=== PATIENT | male | born 1950 | race Caucasian/White ===

== ENCOUNTER 2020-05-22 07:25 | Outpatient (CLI) | payer MEDICARE, SELFPAY ==
--- NOTE | ~2020-05-22 | CT_ITS ---
EXAMINATION: CT chest wo con DATE: 05/22/2020 07:56 INDICATION: 5 mm middle lobe nodule noted on 04/18/2019 CT abdomen pelvis examination TECHNIQUE: Computed tomography (CT) of the chest was performed without intravenous contrast. Automate d exposure control and iterative reconstruction technique were employed. Exam dose: 284.94 mGy-cm to gisell exam DLP. COMPARISON: 04/18/2019 CT abdomen pelvis FINDINGS: Probable anterior left apical scarring; recommend [address] thorax follow-up to document s tability. Minimal focal groundglass density in the anterior right apical area. Occasional right upper, middle a nd lower lobe pulmonary calcifications consistent with old granulomatous disease. No suspicious pulmonary mass is noted otherwise. No pulmonary infiltrate or consolidation. Status post sternotomy. There is a monitoring device in the anterior left chest wall. There is normal heart size. There is coronary, aortic and great vessel atherosclerotic calcification. No thoracic aortic aneurysm is evident. No pericardial or pleural effusion. No hilar or mediastinal mass lesion or lymphadenopathy. Normal morphology of the adrenal glands. Status post cholecystectomy. Diffuse idiopathic skeletal hyperostosis of the thoracic spine. No suspicious osteolytic or osteoblas tic lesions are noted. IMPRESSION: Probable left apical and minimal right apical scarring; recommend [address] chest follo w-up examination to document stability Old pulmonary granulomatous disease Reviewed, dictated and finalized at [facility]. Reviewed, dictated and finalized at location B. TRY PRINTER IMPRESSION: Probable left apical and minimal right apical scarring; recommend [address] chest follow-up examination to document stability Old pulmonary granulomatous disease
== END 2020-05-22 07:26 | disposition home or self-care (01) ==
PROVIDERS: PCP Internal Medicine; Visit Provider Physician Assistant
DX: R91.1 Solitary pulmonary nodule (principal)
CPT/HCPCS: 71250

== ENCOUNTER 2021-04-23 07:51 | Outpatient (CLI) | payer MEDICARE, SELFPAY ==
--- NOTE | 2021-04-23 17:19 | WPDSIXMINUTE ---
Six Minute Walk Procedure Procedure Performed Pulmonary Stress Test (6 min walk) Six Minute Walk This is a 6 minute walk test. The test was performed and interpreted in accordance with the 2014 ERS/ATS task force guidelines. Findings: The patient's resting room air oxygen saturation measured by pulse oximetry was 96% and her heart rate was 77 bpm. Patient ambulated for 366 meters and oxygen saturation remained 92 to 95%. Heart rate at the end of the study was 99 bpm. The patient did not qualify for supplemental oxygen at rest or with ambulation. There are no prior studies for comparison.
--- NOTE | 2021-04-23 17:20 | WPDPFTINT ---
PFT Procedure Performed PFT Procedure Performed Spirometry with Pre/Post Bronchodilator Plethysmography (Lung Vol) Diffusing Cap (DLCO) Flow Vol Loop PFT Interpretation This is a pulmonary function test with pre and post-bronchodilator spirometry, plethysmography and diffusing capacity. The test was performed and results interpreted in accordance with the 2019 and 2005 ATS/ERS Task Force guidelines respectively using the Global Lung Function Initiative-2012 reference equations. Patient demonstrated good effort and cooperation. Reproducibility criteria were met. The quality of the pre bronchodilator spirometry maneuver was Grade A and post bronchodilator spirometry maneuver was Grade A. Findings: Spirometry: The contour of the inspiratory and expiratory flow tracing are normal. The pre bronchodilator FVC is 2.82 L, 76% predicted. The pre bronchodilator FEV1 is 2.10 L, 74% predicted. The FEV1: FVC ratio 75%. The post bronchodilator FVC is 2.96 L, representing a 5% increase. The post bronchodilator FEV1 is 2.21 L, representing a 5% increase. The post bronchodilator FEV1: FVC ratio was 75%. Plethysmography: The total lung capacity is 7.51 L, 120% predicted. The functional residual capacity is 5.02 L, 154% predicted. The residual volume is 3.97 L, 177% predicted. Diffusing capacity: The absolute diffusion capacity is 22.4, 91% predicted. The diffusing capacity corrected for alveolar volume is 4.56, 109% predicted. Impression: The spirometry is normal without evidence of an obstructive abnormality. There is no significant improvement after inhaling a single dose of albuterol. The lung volumes are normal. The diffusing capacity is normal. There are no prior studies for comparison
== END 2021-04-23 07:52 | disposition home or self-care (01) ==
LOC: ANHPFT 07:55
PROVIDERS: PCP Physician Assistant; Visit Provider Internal Medicine Pulmonary Disease
DX: R06.00 Dyspnea, unspecified (principal); J40 Bronchitis, not specified as acute or chronic; Z72.0 Tobacco use
CPT/HCPCS: 94060; 94618; 94726; 94729

== ENCOUNTER 2021-08-03 07:57 | Outpatient (CLI) | payer MEDICARE, SELFPAY ==
--- NOTE | 2021-08-11 22:05 | WPDSLEEPSTUD ---
Sleep Study Date of Study: 08/03/21 Ordering Provider: Channing Ulloa MD Interpreting Physician: Seema Schuster DO Sleep Study Type: Split Polysomnogram Height: 1.68 m Weight: 112.945 kg Body Mass Index: 40.1 Neck Circumference (inches): 18 [place]: 6 Reason for Sleep Study Patient had a polysomnogram on 01/26/2010 with an AHI of 23. Patient had a CPAP titration on 02/11/2010 with a CPAP of 9 using a nasal mask and 2 L bleed in which he has been maintained on since then. Sleep History The patient is a 71-year-old male with coronary artery disease status post CABG, atrial fibrillation, hypertension, dyslipidemia, morbid obesity, asthma and TABATHA on CPAP that had a sleep study ordered by his book packer. The patient is currently on CPAP 9 cm H2O with 2 L of oxygen. The patient is currently paying for his own sleep apnea equipment and would like his insurance company to start covering it. The patient rarely awakens from sleep short of breath. He rarely awakens at night with heartburn, belching or cough. He denies snoring loud enough that others complain. He occasionally has trouble sleeping when he has a cold. He denies waking up gasping for air throughout the night. He denies having breathing problems at night observed by himself or others. He occasionally sweats excessively at night. He occasionally has heart palpitations or irregular heartbeats during the night. He rarely falls asleep during the day but never while driving. He denies cataplexy. He denies having trouble at school or work due to sleepiness. He rarely feels unable to move when waking up or falling asleep. He he rarely experiences vivid dream like scenes upon awakening or falling asleep. He denies having nightmares. He frequently has thoughts racing through his mind. He frequently feels sad or depressed. He frequently has anxiety. He rarely notices parts of his body jerk. He occasionally has crawling aching feelings in his legs. He frequently has leg pains during the night. He constantly grinds his teeth during sleep but never awakens with morning doffing. He occasionally is bothered by pain during the day but rarely awakened by pain during the night. He occasionally wakes up feeling stiff in the morning. He rarely wakes up with Sore or achy muscles. He rarely wakes up with pain in the neck, spine and other joints. He goes to bed between 11:00 p.m. and midnight on both weekdays and weekends. The amount of time it takes for him this fall asleep is variable. He wakes up 1-2 times throughout the night to urinate. He can fall back asleep immediately. He wakes up around 8:00 a.m. on both weekdays and weekends. He typically gets 6-7 hours of sleep per night. That amount of time he stays in bed after waking up is variable. He currently lives alone. He does not consume any caffeinated beverages within 2 hours of bedtime. He does not engage in physical exercise before bedtime. He will read and watch television before falling asleep. He does not take naps in the afternoon or the evening. He drinks 2-3 cups of caffeinated beverage per day. He quit smoking cigarettes several years ago. He will occasionally have a CBD edible. He denies alcohol use. [facility] Past Medical History Medical History Asthma Atrial fibrillation CAD (coronary artery disease), autologous vein bypass graft Dyslipidemia Hypertension Surgical History Surgical History History of appendectomy History of cataract extraction History of coronary artery bypass graft Family History Family History Father Family history of Alzheimer's disease Mother Family history of congestive heart failure, Onset Age: 79 Cerebrovascular accident Sibling Patient's sister is Social Histor
[2021-08-17 14:37] VITALS: BMI 40.1
== END 2021-08-04 06:21 | disposition home or self-care (01) ==
LOC: ANHCSM 07:58
PROVIDERS: PCP Physician Assistant; Visit Provider Internal Medicine Pulmonary Disease
DX: G47.33 Obstructive sleep apnea (adult) (pediatric) (principal)
CPT/HCPCS: 95811

== ENCOUNTER 2021-08-27 09:01 | Outpatient (CLI) | payer MEDICARE, SELFPAY ==
--- NOTE | 2021-09-02 11:18 | WPDSLEEPSTUD ---
Sleep Study Date of Study: 08/27/21 Ordering Provider: Channing Ulloa MD Interpreting Physician: Destiny Naylor MD Sleep Study Type: CPAP Titration Height: 1.68 m Weight: 112.491 kg Body Mass Index: 40.0 Neck Circumference (inches): 17 [place]: 5 Reason for Sleep Study Split night study 08/03/2021 with incomplete titration; patient returns for a full night titraiton Sleep History Pedrito Domingo is a 71 year old man with obstructive sleep apnea diagnosed 01/26/2010 with an apnea hypopnea index of 23, was treated with CPAP 9 cm and 2 L O2 since then. His split night study 08/03/2021 showed an apnea hypopnea index of 5.6, REM AHI 25.5. He was titrated from 5 cm to 12 cm with his AHI remaining elevated at the highest pressure, AHI was 22.9 without REM at that pressure. His AHI was higher during REM. Sometimes during a split night study, there is not enough time to get to the optimal pressure. He has coronary artery disease status post CABG, atrial fibrillation, hypertension, dyslipidemia, morbid obesity, asthma and TABATHA on CPAP 9 cm H2O with 2 L of oxygen. The patient is currently paying for his own sleep apnea equipment and would like his insurance company to start covering it. The patient rarely awakens from sleep short of breath. He rarely awakens at night with heartburn, belching or cough. He denies snoring loud enough that others complain. He occasionally has trouble sleeping when he has a cold. He denies waking up gasping for air throughout the night. He denies having breathing problems at night observed by himself or others. He occasionally sweats excessively at night. He occasionally has heart palpitations or irregular heartbeats during the night. He rarely falls asleep during the day but never while driving. He denies cataplexy. He denies having trouble at school or work due to sleepiness. He rarely feels unable to move when waking up or falling asleep. He he rarely experiences vivid dream like scenes upon awakening or falling asleep. He denies having nightmares. He frequently has thoughts racing through his mind. He frequently feels sad or depressed. He frequently has anxiety. He rarely notices parts of his body jerk. He occasionally has crawling aching feelings in his legs. He frequently has leg pains during the night. He constantly grinds his teeth during sleep but never awakens with morning doffing. He occasionally is bothered by pain during the day but rarely awakened by pain during the night. He occasionally wakes up feeling stiff in the morning. He rarely wakes up with Sore or achy muscles. He rarely wakes up with pain in the neck, spine and other joints. Normal bedtime is between 11:00 p.m. and midnight, and the amount of time it takes for him this fall asleep is variable. He wakes up 1-2 times throughout the night to urinate. He can fall back asleep immediately. He wakes up around 8:00 a.m. He typically gets 6-7 hours of sleep per night. He currently lives alone. He does not consume any caffeinated beverages within 2 hours of bedtime. He does not engage in physical exercise before bedtime. He will read and watch television before falling asleep. He does not take naps in the afternoon or the evening. Habits: Tobacco, quit several years ago. Caffeine: 2-3 servings a day. He will occasionally have a CBD edible. He denies alcohol use. [facility] Past Medical History Medical History (Updated 09/02/21 @ 11:32 by Destiny Naylor MD) Anemia Asthma Atrial fibrillation CAD (coronary artery disease), autologous vein bypass graft Dyslipidemia Hypertension TABATHA (obstructive sleep apnea) Surgical History Surgical History History of appendectomy History of cataract extraction History of coronary artery bypass graft Family History Family History Father Family history of Alzheimer's disease
[2021-09-02 12:45] VITALS: BMI 40.0
== END 2021-08-28 07:23 | disposition home or self-care (01) ==
LOC: ANHCSM 09:10
PROVIDERS: PCP Physician Assistant; Visit Provider Internal Medicine Pulmonary Disease
DX: G47.33 Obstructive sleep apnea (adult) (pediatric) (principal)
CPT/HCPCS: 95811

== ENCOUNTER 2021-11-26 09:58 | Outpatient (CLI) | payer MEDICARE, SELFPAY ==
--- NOTE | ~2021-11-26 | US_ITS ---
EXAMINATION: US venous doppler LE RT DATE: 11/26/2021 10:53 INDICATION: Right lower limb pain. TECHNIQUE: Grayscale ultrasound images without and with compression and Doppler ultrasound images of the right lower extremity veins were obtained. COMPARISON: None. FINDINGS: The visualized portions of right common femoral vein, profunda (deep) femoral vein, femoral vein, pop liteal vein, peroneal veins, posterior tibial veins, and greater saphenous vein outflow are patent. IMPRESSION: 1. No deep venous thrombosis. Reviewed, dictated and finalized at location A.
== END 2021-11-26 09:59 | disposition home or self-care (01) ==
PROVIDERS: PCP Physician Assistant; Visit Provider Physician Assistant
DX: M79.604 Pain in right leg (principal)
CPT/HCPCS: 93971

== ENCOUNTER 2022-02-17 07:33 | Outpatient (CLI) | payer MEDICARE, SELFPAY ==
--- NOTE | ~2022-02-17 | NM_ITS ---
EXAMINATION: NM staci stress w perfusion DATE: 02/17/2022 11:18 INDICATION: Chest pain TECHNIQUE: Rest images were obtained following intravenous administration of 9.8 mCi Tc99m tetrofosmi n (Myoview). The patient was infused intravenously with Lexiscan (Regadenoson). Then, 30 mCi Tc99m te trofosmin (Myoview) was administered intravenously, and stress images were obtained. Data was reconst ructed into short axis and horizontal and vertical long axis SPECT images. Gated SPECT images were al so obtained. COMPARISON: None. FINDINGS: Large mild perfusion defect, reversible consistent with ischemia at the mid anteroseptal an d the posterior septal segments, nonreversible consistent with infarct at the apical and apical septa l segments and partially reversible at the anteroapical, apical lateral and inferior septal segments consistent with combination of infarct and ischemia. There is normal left ventricular chamber size, w all motion and ejection fraction. Left ventricular ejection fraction measures 60%. IMPRESSION: 1. Reversible ischemia at the mid anteroseptal and mid inferoseptal segments, nonreversible infarct a t the apical septal and apical segments and partially reversible ischemia superimposed over infarct i n the surrounding apical anterior, apical lateral and apical inferior segments. 2. Left ventricular ejection fraction measuring 60%. Reviewed, dictated and finalized at location A. IMPRESSION: 1. Reversible ischemia at the mid anteroseptal and mid inferoseptal segments, n onreversible infarct at the apical septal and apical segments and partially rev ersible ischemia superimposed over infarct in the surrounding apical anterior, apical lateral and apical inferior segments. 2. Left ventricular ejection fraction measuring 60%.
--- NOTE | 2022-02-17 07:41 | EST_ITS ---
Patient Info Name: Pedrito Domingo Age: 71 years : 1950 Gender: Male Ht: 66 in Wt: 250 lbs BSA: 2.35 m2 HR: 49 bpm BP: 116 / 56 mmHg Heart Rhythm: Atrial Fibrillation Exam Date: 02/17/2022 10:10 AM Exam Location: [facility] Stress Patient Status: Outpatient Admit Date: 02/17/2022 Staff Ordering Physician: Teddy Cortes DO Attending Provider: Teddy Cortes DO Exercise Technologist: Radha Palacios CT Exercise Physician: Teddy Cortes DO Exam Type: CA stress staci w NM Study Info Indications R07.9 - Chest pain, unspecified A regadenoson stress test was performed. Summary 1. 1. Negative lexiscan stress test for ischemic ST changes by ECG criteria. 2. 2. Stable hemodynamics throughout the test. 3. 3. Nuclear scan to follow and will be reported separately. Please correlate with it. 4. 4. Patient informed of the above results. Protocol: Lexiscan Stress ECG Details Stage: REST Duration (min): 1 min : 57 sec HR (bpm): 51 SBP (mmHg): 116 DBP (mmHg): 56 Stage: REST Duration (min): 8 min : 15 sec HR (bpm): 55 SBP (mmHg): 116 DBP (mmHg): 56 Stage: STAGE 1 Duration (min): 1 min : 0 sec HR (bpm): 61 SBP (mmHg): 116 DBP (mmHg): 56 Stage: RECOVERY Duration (min): 1 min : 0 sec HR (bpm): 65 SBP (mmHg): 108 DBP (mmHg): 83 Stage: RECOVERY Duration (min): 2 min : 0 sec HR (bpm): 67 SBP (mmHg): 108 DBP (mmHg): 83 Stage: RECOVERY Duration (min): 3 min : 0 sec HR (bpm): 61 SBP (mmHg): 129 DBP (mmHg): 79 Stage: RECOVERY Duration (min): 3 min : 18 sec HR (bpm): 66 SBP (mmHg): 129 DBP (mmHg): 79 Rest HR: 55 bpm Peak HR: 71 bpm Rest Sys BP: 116 mmHg Peak Sys BP: 129 mmHg Max Pred HR: 150 bpm % Max Pred HR: 47 % Target HR: 128 bpm Max RPP: 9,159 bpm*mmHg Termination Reason: Completed protocol Cardiac Symptoms: Shortness of breath Total Time: 1 min : 0 sec Rest Doyle BP: 56 mmHg Peak Doyle BP: 79 mmHg Total Dose: 0.4 mg Resting ECG Atrial fibrillation with intermittent RBBB. Stress ECG No ST changes. Arrhythmias None. Report Signatures
--- NOTE | 2022-02-17 07:41 | ECHO_ITS ---
Patient Info Name: Pedrito Domingo Age: 71 years : 1950 Gender: Male Ht: 67 in Wt: 250 lbs BSA: 2.37 m2 HR: 56 bpm BP: 133 / 80 mmHg Technical Quality: Good Exam Date: 02/17/2022 8:15 AM Exam Location: [facility] Patient Status: Outpatient Admit Date: 02/17/2022 Staff Ordering Physician: Teddy Cortes DO Engineering Illustrator: Avinash Carvalho RDCS, RT Attending Provider: Teddy Cortes DO Referring Physician: Sebastian DUNCAN; Exam Type: CA echo dop color flow w con Study Info Indications I50.9 - Heart failure, unspecified Complete two-dimensional, color flow and Doppler transthoracic echocardiogram is performed. Strain analysis performed. Summary 1. Complete two-dimensional, color flow and Doppler transthoracic echocardiogram is performed. 2. Definity contrast administered improved wall motion interpretation. 3. Left ventricular chamber dimension is severely enlarged. 4. Left ventricular systolic function is preserved, estimated at 50-55%. 5. The left ventricular diastolic function is grade III diastolic dysfunction. 6. E/e' 12 is mildly elevated. 7. Right ventricular systolic function is reduced based on abnormal TAPSE 1.6 cm. 8. Left atrial chamber dimension is moderately enlarged. 9. Right atrial chamber dimension is mildly enlarged. 10. There is mild mitral valve regurgitation. 11. There is mild to moderate tricuspid valve regurgitation. 12. Mild pulmonary hypertension, estimated pulmonary arterial systolic pressure is 47 mmHg. 13. There is trace pulmonic regurgitation. Left Ventricle E/e' 12 is mildly elevated. Definity contrast administered improved wall motion interpretation. Left ventricular chamber dimension is severely enlarged. Left ventricular systolic function is preserved, estimated at 50-55%. The left ventricular diastolic function is grade III diastolic dysfunction. Right Ventricle Right ventricular systolic function is reduced based on abnormal TAPSE 1.6 cm. Right ventricular chamber dimension is not well visualized. Left Atria Left atrial chamber dimension is moderately enlarged. Right Atria Right atrial chamber dimension is mildly enlarged. Aortic Valve The aortic valve is trileaflet. There is no aortic valve stenosis. There is no aortic valve regurgitation. Pulmonic Valve There is trace pulmonic regurgitation. Mitral Valve There is no mitral valve stenosis. There is mild mitral valve regurgitation. Tricuspid Valve There is mild to moderate tricuspid valve regurgitation. Mild pulmonary hypertension, estimated pulmonary arterial systolic pressure is 47 mmHg. Pericardium/Pleural There is no pericardial effusion. Inferior Vena Cava Normal inferior vena cava with >50% collapse upon inspiration consistent with normal right atrial pressure, 5 mmHg. Aorta The aortic root size at the sinus of Valsalva is normal. Left Ventricular Outflow Tract Name Value Normal LVOT 2D LVOT Diameter 2.03 cm LVOT Doppler LVOT Peak Gradient 3 mmHg LVOT Mean Gradient 2 mmHg LVOT VTI 20.84
[2022-02-17] MEDS: PERFLUTREN LIPID MICROSPHERES 1.5 ML VIAL DILUTED TO 10 ML TOTAL VOLUME IV PUSH (08:30)
== END 2022-02-17 07:34 | disposition home or self-care (01) ==
LOC: ANHCARD 07:34
PROVIDERS: PCP Physician Assistant; Visit Provider Internal Medicine Cardiovascular Disease
DX: I25.810 Atherosclerosis of coronary artery bypass graft(s) without angina pectoris (principal); R07.9 Chest pain, unspecified; I34.0 Nonrheumatic mitral (valve) insufficiency; I36.1 Nonrheumatic tricuspid (valve) insufficiency
CPT/HCPCS: 78452; 93017; A9502; C8929; J2785; Q9957

== ENCOUNTER 2022-03-08 02:09 | Day surgery (SDC) | payer MEDICARE, SELFPAY ==
[2022-03-05 14:05] VITALS: BMI 40.1
[2022-03-08] VITALS (9 sets, daily range): BP systolic 111–142; BP diastolic 66–91; PULSE 52–64; RESP 16–20; TEMP 35.7–36.4; O2SAT 96–99; BMI 40.5
[2022-03-08 08:02] LABS: Basophils Absolute Auto 0.1 K/mm3 (0.0-0.1); Basophils Percent Auto 0.7 % (0.2-1.2); Eosinophils Absolute Auto 0.4 K/mm3 (0-0.3); Eosinophils Percent Auto 3.4 % (0-4.4); Hemoglobin 14.3 g/dL (14.0-18.0); Immature Granulocyte Absolute 0.06 K/mm3 (0.00-0.031); Immature Granulocyte Percent A 0.6 % (0-0.5); Lymphocytes Absolute Auto 1.96 K/mm3 (0.9-3.2); Lymphocytes Percent Auto 18.3 % (18.3-44.2); Mean Corpuscular HGB Conc 32.5 g/dl (32-36); Mean Corpuscular Hemoglobin 27.9 pg (26-34); Mean Corpuscular Volume 85.8 fl (80-100); Mean Platelet Volume 10.9 fl (7.4-10.4); Monocytes Absolute Auto 1.2 K/mm3 (0.1-0.6); Monocytes Percent Auto 11.1 % (2.6-8.5); Neutrophils Absolute Auto 7.1 K/mm3 (1.3-6.7); Neutrophils Percent Auto 65.9 % (45.5-73.1); Platelet Count Result 376 k/mm3 (150-375); Red Blood Count 5.13 M/mm3 (4.6-6.20); Red Cell Distribution Width 13.8 % (11.5-14.5); White Blood Count 10.7 K/mm3 (4.5-10.0)
[2022-03-08 08:11] LABS: Anion Gap 12 mmol/L (8-16); Blood Urea Nitrogen 31 mg/dL (9-20); Calcium 9.9 mg/dL (8.4-10.2); Carbon Dioxide 27 mmol/L (22-30); Chloride 100 mmol/L (98-107); Estimated CRCL calculation 81 ml/min; Estimated Glomerular Filt Rate > 60; Glucose 110 mg/dL (65-110); Potassium 4.1 mmol/L (3.4-5.0); Sodium 139 mmol/L (137-145)
--- NOTE | 2022-03-08 11:13 | WPDHPUPDATE1 ---
History and Physical Update Update Date/Time: 03/08/22 11:13 History and Physical has been reviewed, including an updated exam of the patient. There are NO changes in the patient's condition. Risks, benefits, and alternatives have been discussed and questions answered. Patient agrees to proceed with procedure.
--- NOTE | 2022-03-08 11:13 | WPDMODSED ---
Moderate Sedation Note-Pt Data Patient Data Diagnosis: Abnormal stress test Present Complaint: Shortness of breath in setting of abnormal stress test and known CAD s/p CABG Procedure to be performed/Plan: Coronary angiography, LHC, Bypass graft angiography Allergies Allergy/AdvReac Type Severity Reaction Status Date / Time No Known Allergies Allergy Verified 02/26/22 09:55 Home Medications Medication Instructions Recorded Confirmed Type cholecalciferol (vitamin D3) 125 5,000 unit PO DAILY 05/07/19 03/08/22 History mcg (5,000 unit) capsule coenzyme Q10 200 mg capsule 100 mg PO DAILY 06/16/20 03/08/22 History metoprolol tartrate 50 mg tablet 50 mg PO Q12H #180 tabs 03/02/21 03/08/22 Rx famotidine 20 mg tablet 20 mg PO BID PRN reflux #180 tabs 06/12/21 03/08/22 Rx metoprolol tartrate 25 mg tablet 25 mg PO BID #180 tabs 06/12/21 03/08/22 Rx Ventolin HFA 90 mcg/actuation 2 puff inhalation Q4-6H PRN 06/19/21 03/05/22 Rx aerosol inhaler (albuterol sulfate) shortness of breath or wheezing #8 grams omega-3 fatty acids 1,000 mg 1,000 mg PO BID 07/29/21 03/08/22 History capsule (Fish Oil Concentrate) chlorthalidone 25 mg tablet 25 mg PO DAILY #90 tabs 11/06/21 03/08/22 Rx fluoxetine 20 mg capsule (Prozac) 20 mg PO DAILY #90 caps 11/06/21 03/08/22 Rx fenofibrate 160 mg tablet 160 mg PO DAILY #90 tabs 01/05/22 03/08/22 Rx rosuvastatin 10 mg tablet (Crestor) 10 mg PO DAILY #90 tabs 01/05/22 03/08/22 Rx metformin 500 mg tablet 500 mg PO DAILY #90 tabs 02/25/22 03/08/22 Rx aspirin 81 mg tablet,delayed 81 mg PO DAILY 02/26/22 03/08/22 History release apixaban 5 mg tablet (Eliquis) 5 mg PO BID 03/05/22 03/08/22 History budesonide-formoterol HFA 160 2 puff inhalation PRN PRN 03/05/22 03/08/22 History mcg-4.5 mcg/actuation aerosol Shortness Of Breath inhaler (Symbicort) montelukast 10 mg tablet 10 mg PO DAILY 03/05/22 03/08/22 History pantoprazole 40 mg tablet,delayed 40 mg PO DAILY 03/05/22 03/05/22 History release (Protonix) amoxicillin 500 mg-potassium 1 tablet PO BID 03/08/22 03/08/22 History clavulanate 125 mg tablet Current Medications: Active Medications Sodium Chloride (Normal Saline Iv) 500 mls @ 100 mls/hr IV CONT .Q5H [facility] Sedation/Anesthesia: No previous sedation/anesthesia problems (including family history). [facility] Past Medical History Medical History Anemia Asthma Atrial fibrillation CAD (coronary artery disease), autologous vein bypass graft Dyslipidemia Hypertension TABATHA (obstructive sleep apnea) Surgical History Surgical History History of appendectomy History of cataract extraction History of coronary artery bypass graft Family History Family History Father Family history of Alzheimer's disease Mother Family history of congestive heart failure, Onset Age: 79 Cerebrovascular accident Sibling Patient's sister is Social History Social History Smoking packs per day: 1 Smoking cigarettes per day: 20.0 Years smoked: 5 Smoking pack-years: 5.00 Smoking status: Never smoker Second hand tobacco smoke exposure: No Alcohol intake: never Substance use: never Substance use type: does not use Living arrangements: alone Spiritual care concerns: No Mod Sed Physical Exam Physical Exam Pre Procedural Exam: Normal: Appearance, Throat, Airway, Lungs, Heart Rate, Heart Rhythm, Neuro Exam, Abdomen, Extremities and Skin Hours since solid foods: 10 Hours since liquid intake: 10 Mallampati Classification: class III Internal Medicine - PN: Obj Da Vital Signs Vital Signs: Vital Signs - 24 hr 03/08/22 07:31 03/08/22 10:43 03/08/22 11:00 Temperature 35.7 C L 36.4 C Pulse Rate 64 62 62 Respiratory Rate 16 16
--- NOTE | 2022-03-09 09:33 | WPDCARDPROC ---
Cardiac Cath Procedure Note Date of procedure:: 03/08/22 Performing physician:: CATHETERIZATION LABORATORY REPORT Procedure Date: 03/08/2022 Pest Controller Assistant: Rajiv Hoover M.D., [facility]? Referring Physician: Dr. Cortes ? Anesthesia: Versed and Fentanyl were ordered and given in my presence at 09:17, procedure ended at 10:27. Supervision of nurse monitored moderate sedation with Versed and Fentanyl was provided for 70 minutes. Total of Versed 4mg and Fentanyl 100mcg were administered by hoisting laborer RN. Pre-op Diagnosis: CAD s/p CABG Post-op Diagnosis: Severe [place] multivessel coronary artery disease Patent LIM-LAD and SVG-OM bypass grafts Occluded SVG-Diagonal and SVG-RCA bypass grafts Left ventricular end-diastolic pressure of 24mmHg Procedure(s): 1. Moderate sedation 2. Ultrasound-guided access of the right common femoral artery 3. Coronary angiography 4. Left heart cath 5. Bypass graft angiography 6. Aortogram 7. Angioseal closure of the right common femoral artery Access Site: Right common femoral artery Brief History and Clinical Indications: Patient is a 72-year-old male with a history of CAD s/p 4-V CABG in 2005 who has been having symptoms of shortness of breath. He underwent a stress test, which was abnormal. Therefore, patient referred for cardiac cath for ischemic evaluation. All risks, benefits and alternatives to left heart catheterization with or without percutaneous coronary intervention was discussed at length with the patient. Risk of complications including but not limited to bleeding, infection, arrhythmia, stroke, worsening kidney function, blood loss, groin hematoma, limb loss, emergency coronary artery bypass grafting, and even were discussed with the patient and all questions were answered. The patient understood and wished to proceed. Time out called, patient name, date of , medical record number, allergies, procedure performed, identify Pest Controller Assistant, patient and staff member concurred with accurate data, procedure carried on. Findings: LEFT HEART CATHETERIZATION FINDINGS: 1. Left main: The LAD and LCX have separate ostia. 2. Left anterior descending: The proximal LAD has an 80% stenosis. There are 2 small caliber diagonal branches that are diffusely diseased. After the second diagonal branch, the LAD is completely occluded. 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 The distal LAD is filled via the LIM graft. The distal LAD has mild diffuse disease. 3. Left circumflex: The left circumflex has mild diffuse disease without any significant obstructive angiographic disease. The LCX is a co-dominant vessel. There is an OM vessel which is occluded proximally; competitive filling is seen in the mid-distal portion of the vessel. 4. Right coronary artery: The RCA is a co-dominant vessel. The RCA is diffusely diseased. There is a moderate sized aneurysmal segment in the proximal-mid RCA. In the mid RCA, there is a 90% stenosis. Immediately distal to this stenosis, there is a small aneurysm. 5. Left ventricle: A. End-diastolic pressure 24 mmHg. B. LV gram deferred. C. No significant gradient across aortic valve on catheter pullback. 6. Bypass graft angiography: A. LIM to LAD is widely patent. B. SVG to OM is widely patent. Has a jump graft to a second OM vessel. C. SVG to RCA is occluded. Stump visualized. D. SVG to Diagonal appears to be occluded. No competitive filling seen in the Diagonal region. No graft visualized on aortogram. Description of Procedure: Informed consent signed and placed in the chart. Patient transferred to hoisting laborer room. Prepped and draped in usual sterile fashion. 2% lidocaine in right groin area. Micropuncture needle used to access right common femoral artery with Seldinger technique under fluoroscopic guidance. J wire advanced, micropuncture cannula placed. Right iliofemoral angiogram performed, access confirmed and micropuncture cannula ex
== END 2022-03-08 13:30 | disposition home or self-care (01) ==
PROVIDERS: PCP Physician Assistant; Visit Provider Internal Medicine
PROC: 4A023N7 Measurement of Cardiac Sampling and Pressure, Left Heart, Percutaneous Approach (ICD-10-PCS; CPT 93459; principal; 2022-03-08 08:30)
DX: I25.10 Atherosclerotic heart disease of native coronary artery without angina pectoris (principal); I25.810 Atherosclerosis of coronary artery bypass graft(s) without angina pectoris; I48.91 Unspecified atrial fibrillation; I10 Essential (primary) hypertension; E78.5 Hyperlipidemia, unspecified; G47.33 Obstructive sleep apnea (adult) (pediatric); J45.909 Unspecified asthma, uncomplicated; D64.9 Anemia, unspecified; Z79.51 Long term (current) use of inhaled steroids; Z79.84 Long term (current) use of oral hypoglycemic drugs; Z79.01 Long term (current) use of anticoagulants; Z79.82 Long term (current) use of aspirin
CPT/HCPCS: 36415; 80048; 85025; 93459; A9270; C1760; C1769; C1887; C1894; G0269; J1644; J2250; J3010; J7040

== ENCOUNTER 2022-07-08 15:07 | Emergency (ER) | payer MEDICARE, SELFPAY ==
--- NOTE | 2022-07-08 15:12 | ED.FEMALEGU ---
HPI - Female Genitourinary General Chief complaint: Urogenital-Male Stated complaint: BURNING/FREQUENT URINATION/FEVER/CHILLS/BODY ACHES Time Seen by Provider: 07/08/22 15:12 Source: patient and RN notes reviewed History of Present Illness HPI Narrative: Patient is a 72-year-old presents to the Urgent Care with complaints of frequent urination, fever, chills, body aches. Patient states that it started 1 week ago and he is soon to maybe he had COVID. Patient tested negative for COVID at home and he has been taking Tylenol for his symptoms. Denies nausea, calf pain or abdominal pain. No other acute complaints. No acute distress noted. Patient aware of the plan of care. Some parts of this dictation were generated by voice recognition software and may contain typographical and/or grammatical inaccuracies. Related Data Home Medications Medication Instructions Recorded Confirmed cholecalciferol (vitamin D3) 125 5,000 unit PO DAILY 05/07/19 07/08/22 mcg (5,000 unit) capsule coenzyme Q10 200 mg capsule 100 mg PO DAILY 06/16/20 07/08/22 omega-3 fatty acids 1,000 mg 1,000 mg PO BID 07/29/21 07/08/22 capsule (Fish Oil Concentrate) aspirin 81 mg tablet,delayed 81 mg PO DAILY 02/26/22 07/08/22 release Allergies Allergy/AdvReac Type Severity Reaction Status Date / Time No Known Allergies Allergy Verified 07/08/22 15:14 Review of Systems Review of Systems: CONSTITUTIONAL: Reports of fever, chills EYES: Denies visual changes, redness, or discharge. ENT: Denies rhinorrhea, congestion, sore throat, or otalgia. CARDIOVASCULAR: Denies chest pain, palpitations, or edema. RESPIRATORY: Denies cough or dyspnea. GASTROINTESTINAL: Denies abdominal pain, nausea, vomiting, or diarrhea. GENITOURINARY: Reports of urinary frequency, urgency SKIN: Denies rash or itching. MUSCULOSKELETAL: Denies back pain, joint pain. Reports of body ache NEUROLOGIC: Denies headache, numbness, or weakness. All other systems reviewed are negative, except as documented in HPI. [facility] Past Medical History Medical History Anemia Asthma Atrial fibrillation CAD (coronary artery disease), autologous vein bypass graft Dyslipidemia History of left heart catheterization Hypertension TABATHA (obstructive sleep apnea) Surgical History Surgical History History of appendectomy History of cataract extraction History of coronary artery bypass graft Family History Family History Father Family history of Alzheimer's disease Mother Family history of congestive heart failure, Onset Age: 79 Cerebrovascular accident Sibling Patient's sister is Social History Social History Smoking packs per day: 1 Smoking cigarettes per day: 20.0 Years smoked: 5 Smoking pack-years: 5.00 Smoking status: Never smoker Second hand tobacco smoke exposure: No Alcohol intake: never Substance use: never Substance use type: does not use Lack of Transportation: No Lack of Food: Never True Current Housing: I Have Housing Concerned About Future Housing: No Difficulty Paying Gas/Electric Bills: No Difficulty Paying for Meds: No Education: Master's Degree or Higher Difficulty w/ Childcare or Family Care: No Living arrangements: alone Spiritual care concerns: No Comments At the time of my signature, I reviewed and agree with the nursing past medical, surgical, social, and family history. There is no relevant family history pertinent to the patient complaint. Exam Narrative: GENERAL: This is a well-nourished, well-developed patient, in no apparent distress. HEAD: normocephalic, atraumatic. EYES: PERRL. Sclera clear/white. Vision is grossly intact. EARS: External ears normal NO
[2022-07-08 15:17] VITALS: BP 113/68; PULSE 83; RESP 16; TEMP 37.1; O2SAT 98
== END 2022-07-08 15:45 | disposition home or self-care (01) ==
PROVIDERS: Emergency Provider Nurse Practitioner Family; PCP Physician Assistant
DX: N39.0 Urinary tract infection, site not specified (principal); J45.909 Unspecified asthma, uncomplicated; I48.91 Unspecified atrial fibrillation; I25.10 Atherosclerotic heart disease of native coronary artery without angina pectoris; E78.5 Hyperlipidemia, unspecified; I10 Essential (primary) hypertension; Z98.84 Bariatric surgery status
CPT/HCPCS: 81003; 87077; 87086; 87186; 99213; G0463

== ENCOUNTER 2023-01-04 01:40 | Day surgery (SDC) | payer MEDICARE, SELFPAY ==
[2022-12-27 13:41] VITALS: BMI 41.3
[2023-01-04 08:31] LABS: Glucose Point of Care 96 mg/dl (65-105)
[2023-01-04 08:33] VITALS: BP 119/74; PULSE 66; RESP 18; TEMP 36; O2SAT 98
[2023-01-04] MEDS: LACTATED RINGERS 1,000 ML 150 ML IV CONT (08:43)
--- NOTE | 2023-01-04 09:01 | PM.HPGS ---
History of Present Illness History of Present Illness Consent: Risks, benefits, and alternatives have been discussed and questions answered. Patient agrees to proceed with procedure. Chief complaint: family history of colon cancer Narrative: Pedrito Domingo is a 72 year old male with last colonoscopy 6 years ago Review of Systems Constitutional: Constitutional: Denies headache(s) and Denies weakness Eyes: Eyes: Denies blurry vision ENT: Reports Normal hearing present, Denies headache(s) and Denies neck pain Cardiovascular: Cardiovascular: Denies chest pain and Denies dyspnea Respiratory: Respiratory: Denies dyspnea Gastrointestinal: Gastrointestinal: Reports no additional gastrointestinal complaints Genitourinary: Genitourinary: Denies dysuria Musculoskeletal: Musculoskeletal: Denies neck pain Integumentary/Breasts: Skin/Breast: Denies dry skin Neurologic: Reports Normal hearing present, Denies headache(s) and Denies weakness Psychiatric: Psychiatric: Denies anxiety Endocrine: Endocrine: Denies change in body appearance Hematologic/Lymphatic: Hematologic/Lymphatic: Denies easy bleeding Allergic/Immunologic: Allergic/Immunologic: Denies urticaria PMFSH Past Medical History Medical History (Updated 01/04/23 @ 09:02 by Prashant Benites MD) Anemia Asthma Atrial fibrillation CAD (coronary artery disease), autologous vein bypass graft Colon cancer screening Dyslipidemia History of left heart catheterization Hypertension TABATHA (obstructive sleep apnea) Surgical History Surgical History History of appendectomy History of cataract extraction History of coronary artery bypass graft Family History Family History Father Family history of Alzheimer's disease Mother Family history of congestive heart failure, Onset Age: 79 Cerebrovascular accident Sibling Patient's sister is Social History Social History Smoking packs per day: 1 Smoking cigarettes per day: 20.0 Years smoked: 5 Smoking pack-years: 5.00 Smoking status: Former smoker Tobacco type: cigarettes Second hand tobacco smoke exposure: No Smoking end date: 06/06/89 Alcohol intake: never Alcohol use details: socially Substance use: current Substance use type: marijuana Other substance usage details: EDIBLES OCC. Lack of Transportation: No Lack of Food: Never True Current Housing: I Have Housing Concerned About Future Housing: No Difficulty Paying Gas/Electric Bills: No Difficulty Paying for Meds: No Education: Master's Degree or Higher Difficulty w/ Childcare or Family Care: No Living arrangements: with family Occupation/Education: retired Spiritual care concerns: No Meds Home Medications and Allergies Home Medications Medication Instructions Recorded Confirmed Type cholecalciferol (vitamin D3) 125 5,000 unit PO DAILY 05/07/19 12/27/22 History mcg (5,000 unit) capsule Ventolin HFA 90 mcg/actuation 2 puff inhalation Q4-6H PRN 06/19/21 12/27/22 Rx aerosol inhaler (albuterol sulfate) shortness of breath or wheezing #8 grams omega-3 fatty acids 1,000 mg 1,000 mg PO BID 07/29/21 12/27/22 History capsule (Fish Oil Concentrate) aspirin 81 mg tablet,delayed 81 mg PO DAILY 02/26/22 12/27/22 History release metoprolol tartrate 50 mg tablet 50 mg PO Q12H #180 tabs 03/19/22 12/27/22 Rx fenofibrate 160 mg tablet 160 mg PO DAILY #90 tabs 07/02/22 12/27/22 Rx montelukast 10 mg tablet See Rx Instructions .Route 07/02/22 12/27/22 Rx .COMPLEX #90 tabs ranolazine 500 mg tablet,extended 500 mg PO Q12H #180 tabs 07/28/22 01/04/23 Rx release,12 hr (Ranexa) metoprolol tartrate 25 mg tablet 25 mg PO BID #180 tabs 09/06/22 01/04/23 Rx rosuvastatin 10 mg tablet (
--- NOTE | 2023-01-04 09:06 | WPDANESEPPF ---
Anes - Initial Pre Proc Eval Procedure: Operation Date: 01/04/23 09:45 Proposed Procedures p Colonoscopy - Prashant Benites MD Date/Time: 01/04/23 09:06 Surgeon: Prashant Benites MD Pre Op Diagnosis: family history of colon cancer Patient Data Age: 72 Gender: M Height: 1.69 m Weight: 117.5 kg Last Vital Signs Temp 96.8 F L 01/04/23 08:33 Pulse 66 01/04/23 08:33 Resp 18 01/04/23 08:33 BP 119/74 01/04/23 08:33 Pulse Ox 98 01/04/23 08:33 O2 Del Method Room Air 01/04/23 08:33 Allergies Allergy/AdvReac Type Severity Reaction Status Date / Time No Known Allergies Allergy Verified 01/04/23 08:31 Home Medications Medication Instructions Recorded Confirmed Type cholecalciferol (vitamin D3) 125 5,000 unit PO DAILY 05/07/19 12/27/22 History mcg (5,000 unit) capsule Ventolin HFA 90 mcg/actuation 2 puff inhalation Q4-6H PRN 06/19/21 12/27/22 Rx aerosol inhaler (albuterol sulfate) shortness of breath or wheezing #8 grams omega-3 fatty acids 1,000 mg 1,000 mg PO BID 07/29/21 12/27/22 History capsule (Fish Oil Concentrate) aspirin 81 mg tablet,delayed 81 mg PO DAILY 02/26/22 12/27/22 History release metoprolol tartrate 50 mg tablet 50 mg PO Q12H #180 tabs 03/19/22 12/27/22 Rx fenofibrate 160 mg tablet 160 mg PO DAILY #90 tabs 07/02/22 12/27/22 Rx montelukast 10 mg tablet See Rx Instructions .Route 07/02/22 12/27/22 Rx .COMPLEX #90 tabs ranolazine 500 mg tablet,extended 500 mg PO Q12H #180 tabs 07/28/22 01/04/23 Rx release,12 hr (Ranexa) metoprolol tartrate 25 mg tablet 25 mg PO BID #180 tabs 09/06/22 01/04/23 Rx rosuvastatin 10 mg tablet (Crestor) 10 mg PO DAILY #90 tabs 09/25/22 12/27/22 Rx apixaban 5 mg tablet (Eliquis) See Rx Instructions .Route 11/22/22 12/27/22 Rx .COMPLEX #180 tabs chlorthalidone 25 mg tablet 25 mg PO DAILY #90 tabs 11/22/22 12/27/22 Rx fluoxetine 20 mg capsule (Prozac) 20 mg PO DAILY #90 caps 11/22/22 12/27/22 Rx fluticasone propionate 50 2 spray intranasal DAILY #16 grams 12/10/22 12/27/22 Rx mcg/actuation nasal spray,suspension (Flonase Allergy Relief) metformin 500 mg tablet 500 mg PO DAILY #90 tabs 12/10/22 12/27/22 Rx budesonide-formoterol HFA 160 2 puff inhalation Q12H PRN 12/27/22 12/27/22 History mcg-4.5 mcg/actuation aerosol Shortness Of Breath Or Wheezing inhaler (Symbicort) famotidine 20 mg tablet 20 mg PO BID reflux 12/27/22 12/27/22 History isosorbide mononitrate 20 mg tablet 20 mg PO DAILY 12/27/22 01/04/23 History Laboratory Tests 01/04/23 08:29 POC Capillary Glucose 96 mg/dl (65-105) Patient hx anesthesia problems: none Family hx anesthesia problems: none Results Review: All pre-operative results and documents have been reviewed as part of the pre-operative evaluation. [facility] Past Medical History Medical History (Updated 01/04/23 @ 09:02 by Prashant Benites MD) Anemia Asthma Atrial fibrillation CAD (coronary artery disease), autologous vein bypass graft Colon cancer screening Dyslipidemia History of left heart catheterization Hypertension TABATHA (obstructive sleep apnea) Surgical History Surgical History History of appendectomy History of cataract extraction History of coronary artery bypass graft Family History Family History Father Family history of Alzheimer's disease Mother Family history of congestive heart failure, Onset Age: 79 Cerebrovascular accident Sibling Patient's sister is Social History Social History Smoking packs per day: 1 Smoking cigarettes per day: 20.0 Years smoked: 5 Smoking pack-years: 5.00 Smoking status: Former smoker Tobacco type: cigarettes Second hand tobacco smoke exposure: No Smokin
--- NOTE | 2023-01-04 09:26 | SUR.OPER ---
ASCENDING COLON POLYP AND TRANSVERSE COLON POLYP FOUND IN POLYP TRAP TOGETHER, DR SPENCER NOTIFIED AND AWARE, SPECIMENS SENT IN SAME CUP PER DR SPENCER.
[2023-01-04 09:27] VITALS: BP 86/71; PULSE 57; RESP 17; O2SAT 99
[2023-01-04 09:37] VITALS: BP 99/64; PULSE 55; RESP 19; O2SAT 96
[2023-01-04 09:47] VITALS: BP 122/74; PULSE 54; RESP 20; O2SAT 98
== END 2023-01-04 10:00 | disposition home or self-care (01) ==
PROVIDERS: PCP Physician Assistant; Visit Provider Internal Medicine Gastroenterology
PROC: 0DJD8ZZ Inspection of Lower Intestinal Tract, Via Natural or Artificial Opening Endoscopic (ICD-10-PCS; CPT 45378; principal; 2023-01-04 09:45)
DX: Z12.11 Encounter for screening for malignant neoplasm of colon (principal); K57.30 Diverticulosis of large intestine without perforation or abscess without bleeding; D12.6 Benign neoplasm of colon, unspecified; Z80.0 Family history of malignant neoplasm of digestive organs; I48.91 Unspecified atrial fibrillation; I25.810 Atherosclerosis of coronary artery bypass graft(s) without angina pectoris; D64.9 Anemia, unspecified; G47.33 Obstructive sleep apnea (adult) (pediatric); E78.5 Hyperlipidemia, unspecified; J45.909 Unspecified asthma, uncomplicated; Z79.51 Long term (current) use of inhaled steroids; Z79.82 Long term (current) use of aspirin; Z79.01 Long term (current) use of anticoagulants; Z79.84 Long term (current) use of oral hypoglycemic drugs; Z87.891 Personal history of nicotine dependence; F12.90 Cannabis use, unspecified, uncomplicated; E66.01 Morbid (severe) obesity due to excess calories; Z68.41 Body mass index [BMI] 40.0-44.9, adult
CPT/HCPCS: 45385; 82948; 88305; J2704; J7120

== ENCOUNTER 2023-03-09 15:32 | Emergency (ER) | payer MEDICARE, SELFPAY ==
[2023-03-09 15:39] VITALS: BP 114/77; PULSE 98; RESP 16; TEMP 36.2; O2SAT 98
--- NOTE | 2023-03-09 15:41 | ED.MALEGU ---
HPI - Male Genitourinary General Chief complaint: Urogenital-Male Stated complaint: Uti symptoms Time Seen by Provider: 03/09/23 15:42 Source: patient and RN notes reviewed History of Present Illness HPI Narrative: Patient is a 73-year-old male who presents to urgent care with complaints of possible UTI with fever, flushing, right flank pain, headache, body ache, burning and urinary incontinence since Tuesday. Patient states he has been taking ibuprofen. States that he was nauseated last night but has not vomited and denies any abdominal discomfort. Patient denies any hematuria. States that he does have chronic urethral stricture and he is following up with [facility] urology department. Patient has not spoke to them regarding this current issue. No other acute complaints. Patient is slightly diaphoretic. No acute distress noted. Patient aware of the plan of care. Some parts of this dictation were generated by voice recognition software and may contain typographical and/or grammatical inaccuracies. Related Data Home Medications Medication Instructions Recorded Confirmed cholecalciferol (vitamin D3) 125 5,000 unit PO DAILY 05/07/19 03/09/23 mcg (5,000 unit) capsule omega-3 fatty acids 1,000 mg 1,000 mg PO BID 07/29/21 03/09/23 capsule (Fish Oil Concentrate) aspirin 81 mg tablet,delayed 81 mg PO DAILY 02/26/22 03/09/23 release budesonide-formoterol HFA 160 2 puff inhalation Q12H PRN 12/27/22 03/09/23 mcg-4.5 mcg/actuation aerosol Shortness Of Breath Or Wheezing inhaler (Symbicort) famotidine 20 mg tablet 20 mg PO BID reflux 12/27/22 03/09/23 isosorbide mononitrate 20 mg tablet 20 mg PO DAILY 12/27/22 03/09/23 metoprolol tartrate 50 mg tablet 75 mg PO Q12H 03/09/23 03/09/23 Allergies Allergy/AdvReac Type Severity Reaction Status Date / Time No Known Allergies Allergy Verified 03/09/23 15:48 Review of Systems Review of Systems: CONSTITUTIONAL: Reports chills, sweats EYES: Denies visual changes, redness, or discharge. ENT: Denies rhinorrhea, congestion, sore throat, or otalgia. CARDIOVASCULAR: Denies chest pain, palpitations, or edema. RESPIRATORY: Denies cough or dyspnea. GASTROINTESTINAL: Denies abdominal pain, nausea, vomiting, or diarrhea. GENITOURINARY: Reports of dysuria, incontinence SKIN: Denies rash or itching. MUSCULOSKELETAL: Reports of right flank pain NEUROLOGIC: Reports of headache All other systems reviewed are negative, except as documented in HPI. [facility] Past Medical History Medical History (Updated 03/09/23 @ 16:23 by ANN-MARIE Rios) Anemia Asthma Atrial fibrillation CAD (coronary artery disease), autologous vein bypass graft Colon cancer screening Dyslipidemia History of left heart catheterization Hypertension TABATHA (obstructive sleep apnea) Surgical History Surgical History History of appendectomy History of cataract extraction History of coronary artery bypass graft Family History Family History Father Family history of Alzheimer's disease Mother Family history of congestive heart failure, Onset Age: 79 Cerebrovascular accident Sibling Patient's sister is Social History Social History Smoking packs per day: 1 Smoking cigarettes per day: 20.0 Years smoked: 5 Smoking pack-years: 5.00 Smoking status: Former smoker Tobacco type: cigarettes Second hand tobacco smoke exposure: No Smoking end date: 06/06/89 Alcohol intake: never Alcohol use details: socially Substance use: current Substance use type: marijuana Other substance usage details: EDIBLES OCC. Lack of Transportation: No Lack of Food: Never True Current Housing: I Have Housing Concerned About Future Housing: No Difficulty Paying Gas/Electric Bills:
[2023-03-09 16:31] LABS: Glucose Point of Care 117 mg/dl (65-105)
== END 2023-03-09 16:30 | disposition home or self-care (01) ==
PROVIDERS: Emergency Provider Nurse Practitioner Family
DX: R30.0 Dysuria (principal); R32 Unspecified urinary incontinence; I48.91 Unspecified atrial fibrillation; I25.10 Atherosclerotic heart disease of native coronary artery without angina pectoris; E78.5 Hyperlipidemia, unspecified; I10 Essential (primary) hypertension; Z87.891 Personal history of nicotine dependence; Z79.82 Long term (current) use of aspirin; Z79.899 Other long term (current) drug therapy
CPT/HCPCS: 81003; 82948; 87804; 99213; G0463

== ENCOUNTER 2023-08-17 09:40 | Emergency (ER) | payer MEDICARE, SELFPAY ==
[2023-08-17 09:49] VITALS: BP 96/68; PULSE 83; RESP 18; TEMP 36.6; O2SAT 95
--- NOTE | 2023-08-17 09:57 | ED.GENADULT ---
HPI - General Adult General Chief complaint: Skin/Abscess/Foreign Body Stated complaint: Right Arm Skin Irritation Source: patient, RN notes reviewed and old records reviewed Mode of arrival: ambulatory Limitations: no limitations History of Present Illness HPI narrative: 73-year-old male patient presents to [facility] with complaints red swollen area to the upper right arm the patient noted 3-4 days ago. Patient denies drainage. Patient states is tender to Touch. Patient has not tried any home remedies. Related Data Home Medications Medication Instructions Recorded Confirmed cholecalciferol (vitamin D3) 125 5,000 unit PO DAILY 05/07/19 08/17/23 mcg (5,000 unit) capsule omega-3 fatty acids 1,000 mg 1,000 mg PO BID 07/29/21 08/17/23 capsule (Fish Oil Concentrate) aspirin 81 mg tablet,delayed 81 mg PO DAILY 02/26/22 08/17/23 release budesonide-formoterol HFA 160 2 puff inhalation Q12H PRN 12/27/22 08/17/23 mcg-4.5 mcg/actuation aerosol Shortness Of Breath Or Wheezing inhaler (Symbicort) nitrofurantoin 100 mg PO DAILY 08/17/23 08/17/23 monohydrate/macrocrystals 100 mg capsule ranolazine 500 mg tablet,extended 500 mg PO DAILY 08/17/23 08/17/23 release,12 hr testosterone 2 pump topical DAILY 08/17/23 08/17/23 Allergies Allergy/AdvReac Type Severity Reaction Status Date / Time No Known Allergies Allergy Verified 08/17/23 09:58 Review of Systems Constitutional: Constitutional: Reports no additional constitutional complaints, Denies body ache(s), Denies chills, Denies fatigue, Denies fever(s) and Denies headache(s) Eyes: Eyes: Reports no additional eye complaints and Denies blurry vision ENT: Reports system reviewed and no additional complaints, except as documented, Denies vertigo, Denies dizziness, Denies ear discharge, Denies otalgia, Denies facial pain, Denies headache(s), Denies nasal congestion, Denies nasal discharge, Denies sinus pain, Denies sinus pressure and Denies sore throat Cardiovascular: Cardiovascular: Reports no additional cardiovascular complaints, Denies chest pain, Denies chest pain at rest, Denies rapid heart rate and Denies dyspnea Respiratory: Respiratory: Reports no additional respiratory complaints, Denies chest congestion, Denies cough, Denies pain on inspiration, Denies pain with cough and Denies dyspnea Gastrointestinal: Gastrointestinal: Denies abdominal pain, Denies diarrhea, Denies nausea and Denies vomiting Integumentary/Breasts: Skin/Breast: Reports erythema, Denies rash, Reports skin pain and Reports wounds Neurologic: Reports system reviewed and no additional complaints, except as documented, Denies vertigo, Denies dizziness and Denies headache(s) Endocrine: Endocrine: Denies fatigue [facility] Past Medical History Medical History Anemia Asthma Atrial fibrillation CAD (coronary artery disease), autologous vein bypass graft Colon cancer screening Dyslipidemia History of left heart catheterization Hypertension TABATHA (obstructive sleep apnea) Surgical History Surgical History History of appendectomy History of cataract extraction History of coronary artery bypass graft Family History Family History Father Family history of Alzheimer's disease Mother Family history of congestive heart failure, Onset Age: 79 Cerebrovascular accident Sibling Patient's sister is Social History Social History Smoking packs per day: 1 Smoking cigarettes per day: 20.0 Years smoked: 5 Smoking pack-years: 5.00 Smoking status: Former smoker Tobacco type: cigarettes Second hand tobacco smoke exposure: No Smoking end date: 06/06/89 Alcohol intake: never Alcohol use details: socially Substance us
== END 2023-08-17 10:07 | disposition home or self-care (01) ==
PROVIDERS: Emergency Provider Registered Nurse; PCP Physician Assistant
DX: L02.413 Cutaneous abscess of right upper limb (principal); Z87.891 Personal history of nicotine dependence; F12.90 Cannabis use, unspecified, uncomplicated; D64.9 Anemia, unspecified; J45.909 Unspecified asthma, uncomplicated; I48.91 Unspecified atrial fibrillation; I25.10 Atherosclerotic heart disease of native coronary artery without angina pectoris; E78.5 Hyperlipidemia, unspecified; I10 Essential (primary) hypertension; Z95.5 Presence of coronary angioplasty implant and graft; Z79.82 Long term (current) use of aspirin
CPT/HCPCS: 99213; G0463

== ENCOUNTER 2023-08-26 09:27 | Emergency (ER) | payer MEDICARE, SELFPAY ==
[2023-08-26 09:46] VITALS: BP 107/77; PULSE 71; RESP 16; TEMP 36.4; O2SAT 98
--- NOTE | 2023-08-26 10:01 | ED.SKABFB ---
HPI - Skin/Abscess/Foreign Bdy General Chief complaint: Skin/Abscess/Foreign Body Stated complaint: abscess Time Seen by Provider: 08/26/23 10:17 Source: patient and RN notes reviewed Mode of arrival: ambulatory Limitations: dementia History of Present Illness HPI narrative: 73-year-old presents with concern for continue redness and bone to the right upper arm. Reports they were seen here 1 week ago and treated with Bactrim for this redness. Reports the redness has decreased slightly but is still present the bump is still present on the arm. Denies fever, aches, chills, sweats. Denies any drainage from the area. Denies known injury, insect bites. Reports they have been using compresses MD complaint: other (Redness) Related Data Home Medications Medication Instructions Recorded Confirmed cholecalciferol (vitamin D3) 125 5,000 unit PO DAILY 05/07/19 08/26/23 mcg (5,000 unit) capsule omega-3 fatty acids 1,000 mg 1,000 mg PO BID 07/29/21 08/26/23 capsule (Fish Oil Concentrate) aspirin 81 mg tablet,delayed 81 mg PO DAILY 02/26/22 08/26/23 release budesonide-formoterol HFA 160 2 puff inhalation Q12H PRN 12/27/22 08/26/23 mcg-4.5 mcg/actuation aerosol Shortness Of Breath Or Wheezing inhaler (Symbicort) nitrofurantoin 100 mg PO DAILY 08/17/23 08/26/23 monohydrate/macrocrystals 100 mg capsule ranolazine 500 mg tablet,extended 500 mg PO DAILY 08/17/23 08/26/23 release,12 hr testosterone 2 pump topical DAILY 08/17/23 08/26/23 Allergies Allergy/AdvReac Type Severity Reaction Status Date / Time No Known Allergies Allergy Verified 08/26/23 09:42 Review of Systems Review of Systems: CONSTITUTIONAL: Denies malaise, chills, sweats, or fever. EYES: Denies redness, or discharge. ENT: Denies rhinorrhea, congestion, swollen lips, swollen tongue CARDIOVASCULAR: Denies chest pain, palpitations, or edema. RESPIRATORY: Denies cough or dyspnea. GASTROINTESTINAL: Denies abdominal pain, nausea, vomiting SKIN: Reports tender raised area on the right upper arm with surrounding redness. Denies purulent drainage, vesicles, bullae, numbness, pain beyond proportion MUSCULOSKELETAL: Denies joint pain or myalgia. NEUROLOGIC: Denies headache. All systems reviewed & are unremarkable except as noted in HPI and below PMFSH Past Medical History Medical History Anemia Asthma Atrial fibrillation CAD (coronary artery disease), autologous vein bypass graft Colon cancer screening Dyslipidemia History of left heart catheterization Hypertension TABATHA (obstructive sleep apnea) Surgical History Surgical History History of appendectomy History of cataract extraction History of coronary artery bypass graft Family History Family History Father Family history of Alzheimer's disease Mother Family history of congestive heart failure, Onset Age: 79 Cerebrovascular accident Sibling Patient's sister is Social History Social History Smoking packs per day: 1 Smoking cigarettes per day: 20.0 Years smoked: 5 Smoking pack-years: 5.00 Smoking status: Former smoker Tobacco type: cigarettes Second hand tobacco smoke exposure: No Smoking end date: 06/06/89 Alcohol intake: never Alcohol use details: socially Substance use: current Substance use type: marijuana Other substance usage details: EDIBLES OCC. Lack of Transportation: No Lack of Food: Never True Current Housing: I Have Housing Concerned About Future Housing: No Difficulty Paying Gas/Electric Bills: No Difficulty Paying for Meds: No Education: Master's Degree or Higher Difficulty w/ Childcare or Family Care: No Living arrangements: with family Occupation/Education:
== END 2023-08-26 10:29 | disposition home or self-care (01) ==
PROVIDERS: Emergency Provider Nurse Practitioner; PCP Physician Assistant
DX: L03.113 Cellulitis of right upper limb (principal); J45.909 Unspecified asthma, uncomplicated; I48.91 Unspecified atrial fibrillation; I25.10 Atherosclerotic heart disease of native coronary artery without angina pectoris; E78.5 Hyperlipidemia, unspecified; I10 Essential (primary) hypertension; Z95.1 Presence of aortocoronary bypass graft; Z87.891 Personal history of nicotine dependence; Z79.82 Long term (current) use of aspirin
CPT/HCPCS: 99213; G0463

== ENCOUNTER 2024-06-19 12:33 | Outpatient (CLI) | payer MEDICARE, SELFPAY ==
--- NOTE | 2024-06-19 12:55 | ECHO_ITS ---
Patient Info Name: Pedrito Domingo Age: 74 years : 1950 Gender: Male Ht: 67 in Wt: 254 lbs BSA: 2.39 m2 HR: 76 bpm BP: 127 / 75 mmHg Heart Rhythm: Atrial Fibrillation Technical Quality: Fair Exam Date: 06/19/2024 1:00 PM Exam Location: Echo Lab Patient Status: Outpatient Admit Date: 06/19/2024 Staff Ordering Physician: Teddy Cortes DO Ms Sql Dba: Shakira Abel RDCS Attending Provider: Teddy Cortes DO Referring Physician: Sebastian DUNCAN; Exam Type: CA echo dop color flow w con Study Info Indications R06.09 - Other forms of dyspnea Complete two-dimensional, color flow and Doppler transthoracic echocardiogram is performed with contrast to opacify the left ventricle and to improve the deliniation of the left ventricle endocardial borders. Contrast/Agitated Saline Contrast/Ag. Saline: Definity Amount: 3.00 ml Administered By: Shakira Abel RDCS New IV Access: Outer Forearm and Left Site Condition: No extravasation, Site dressing applied and IV removed Summary 1. Definity contrast administered improved wall motion interpretation. 2. Left ventricular chamber dimension is normal. 3. Left ventricular systolic function is normal, estimated at 55-60%. 4. Left ventricular septal wall motion is abnormal with septal motion related to bundle branch block. 5. The left ventricular diastolic function is abnormal. 6. E/e' 13 is mildly elevated. 7. Atrial fibrillation. 8. Left atrial chamber dimension is moderately enlarged. 9. There is trace mitral valve regurgitation. 10. There is mild to moderate tricuspid valve regurgitation. 11. Mild pulmonary hypertension, estimated pulmonary arterial systolic pressure is 46 mmHg. 12. Dilated inferior vena cava with >50% collapse upon inspiration consistent with elevated right atrial pressure, 10 mmHg. Left Ventricle Definity contrast administered improved wall motion interpretation. E/e' 13 is mildly elevated. Atrial fibrillation. Left ventricular chamber dimension is normal. Left ventricular systolic function is normal, estimated at 55-60%. Left ventricular septal wall motion is abnormal with septal motion related to bundle branch block. The left ventricular diastolic function is abnormal. Right Ventricle Right ventricular chamber dimension is normal. Right ventricular systolic function is normal. Left Atria Left atrial chamber dimension is moderately enlarged. Right Atria Right atrial chamber dimension is normal. Aortic Valve The aortic valve is trileaflet. There is no aortic valve stenosis. There is no aortic valve regurgitation. Pulmonic Valve There is no pulmonic regurgitation. Mitral Valve There is no mitral valve stenosis. There is trace mitral valve regurgitation. Tricuspid Valve There is mild to moderate tricuspid valve regurgitation. Mild pulmonary hypertension, estimated pulmonary arterial systolic pressure is 46 mmHg. Pericardium/Pleural There is no pericardial effusion. Inferior Vena Cava Dilated inferior vena cava with >50% collapse upon inspiration consistent with elevated right atrial pressure, 10 mmHg. Aorta The aortic root size at the sinus of Valsalva is normal. Left Ventricular Outflow Tract Name Value Normal LVOT 2D LVOT Diameter 1.89 cm LVOT Doppler LVOT Peak Gradient 5 mmHg LVOT Mean Gradient 2 mmHg LVOT VTI 21.51 cm LVOT VTI/AV VTI Ratio 0.74 LVOT Stroke Volume 60.17 ml LVOT CO 4.20 l/min LVOT CI 1.76 L/min/m2 Pulmonic Valve Name Value Normal RVOT Doppler RVOT Peak Gradient 3 mmHg PV Doppler PV Peak Gradient 5 mmHg Mitral Valve Name Value Normal MV Doppler MV Decel Morris 521.96 cm/s2 MV PHT 0 s MV Area (PHT) 4.07 cm2 4.00-5.00 MV Diastolic Function MV E Peak Velocity 97.36 cm/s MV A Peak Velocity 0.52 cm/s MV E/A 187.23 MV Decel Time 0 s Tricuspid Valve Name Value Normal TV Regurgitation Doppler TR Peak Velocity 298.62 cm/s TR Peak Gradient 36 mmHg Estimated PAP/RSVP RA Pressure 10 mmHg <=5 PA Systolic Pressure 46 mmHg <36 RV Systolic Pressure 46 mmHg <36 Aorta Name Value Normal Ascending Aorta Ao Root Diameter (MM) 3.12 cm Ao Root Diam Index (MM) 1.31 cm/m2 Aortic Valve Name Value Normal AV Doppler AV Peak Velocity 150.48 cm/s AV Peak Gradient 8 mmHg AV Mean Gradient 4 mmHg AV VTI 29.01 cm AV Area (Cont Eq VTI) 2.08 cm2 >=3.00 AV Area (Cont Eq Hua) 2.14 cm2 AV Regurgitation 2D LVOT Area 2.80 cm2 Ventricles Name Value Normal LV Dimensions 2D/MM IVS Diastolic Thickness (2D) 0.79 cm 0.60-1.00 IVS Diastole Thickness (MM) 0.92 cm 0.60-1.00 LVID Diastole (2D) 5.09 cm 4.20-5.80 LVID Diastole (MM) 5.42 cm 4.20-5.80 LVIW Diastolic Thickness (2D) 1.33 cm 0.60-1.00 LVIW Diastolic Thickness (MM) 1.13 cm 0.60-1.00 LVID Systole (2D) 3.78 cm 2.50-4.00 LVID Systole (MM) 3.86 cm 2.50-4.00 LVOT Diameter 1.89 cm LV Mass (2D Cubed) 202.24 g 88.00-224.00 LV Mass Index (2D Cubed) 0.01 g/cm2 0.00-0.01 Relative Wall Thickness (2D) 0.52 LV Mass (MM Cubed) 215.35 g 88.00-224.00 LV Mass Index (MM Cubed) 0.01 g/cm2 0.00-0.01 Relative Wall Thickness (MM) 0.42 LV Fractional Shortening/Ejection Fraction 2D/MM LV Fractional Shortening (2D) 26 % 25-43 LV Fractional Shortening (MM) 29 % 25-43 LV EF (MM Teicholz) 55 % 52-72 LV EF (2D Teicholz) 51 % 52-72 LV Diastolic Volume (4C MOD) 93.64 ml LV EF (4C MOD) 45 % LV Diastolic Volume (2C MOD) 103.12 ml LV EF (2C MOD) 68 % LV Diastolic Volume (BP MOD) 98.49 ml 62.00-150.00 LV Diastolic Volume Index (BP MOD) 0.04 l/m2 0.03-0.07 LV Systolic Volume (BP MOD) 43.91 ml 21.00-61.00 LV Systolic Volume Index (BP MOD) 0.02 l/m2 0.01-0.03 LV EF (BP MOD) 55 % 52-72 LV Diastolic Length (4C) 7.63 cm LV Systolic Length (4C) 5.94 cm LV Stroke Volume (4C MOD) 42.22 ml Atria Name Value Normal LA Dimensions LA Dimension (MM) 4.29 cm 3.00-4.10 LA Volume (4C A-L) 76.14 ml LA Volume (BP A-L) 86.85 ml RA Dimensions RA Area (4C) 20.71 cm2 <=18.00 Report Signatures
[2024-06-19] MEDS: PERFLUTREN LIPID MICROSPHERES 1.5 ML VIAL DILUTED TO 10 ML TOTAL VOLUME IV PUSH (14:40)
--- NOTE | 2024-06-19 15:43 | IVDEFINITY ---
Prior to administration of IV Definity the patient was educated on the risks and benefits of the imaging enhancing agent including potential adverse side effects. The patient verbalized understanding. Allergies were verified. No exclusion criteria were identified and at least one of the following inclusion criteria were met: 1) physician request, 2) patient technically difficult to image (per the [place] [employer] of Echocardi[employer] guidelines of two or more segments not discernable within the apical view), or 3) questionable left ventricular function. ?
== END 2024-06-19 12:34 | disposition home or self-care (01) ==
PROVIDERS: PCP Internal Medicine; Visit Provider Internal Medicine Cardiovascular Disease
DX: R06.09 Other forms of dyspnea (principal)
CPT/HCPCS: C8929; Q9957

== ENCOUNTER 2024-10-10 15:48 | Emergency (ER) | payer MEDICARE, SELFPAY ==
[2024-10-10 15:55] VITALS: BP 135/58; PULSE 75; RESP 16; TEMP 36.2; O2SAT 97
--- NOTE | 2024-10-10 16:39 | ED_ITS ---
HPI - Ear Problem General Chief complaint: Ear Stated complaint: EARACHE Source: patient Mode of arrival: ambulatory Limitations: no limitations History of Present Illness HPI Narrative: 74-year-old male presented for complaint of right ear pain, redness and swelling. Onset 2 days. He states that the onset he started the leftover antibiotic/steroid ear drop, without much improvement. Endorses decreased hearin g and pressure. Pt also reports left lower chun with redness and mild pain after striking the leg on an object at work a few days ago. Says the left leg is always more swollen than the right. Denies numbness, tingling, weakness or decreased ROM. Reports concern for cellulitis. MD Complaint: ear pain Related Data Home Medications ?Medication ?Instructions ?Recorded ?Confirmed ?Last Taken ?Type omega-3 fatty acids 1,000 mg 1,000 mg PO BID 07/29/21 10/10/24 03/07/22 20:00 History capsule (Fish Oil Concentrate) aspirin 81 mg tablet,delayed 81 mg PO DAILY 02/26/22 10/10/24 03/07/22 07:30 History release cholecalciferol (vitamin D3) 125 2,000 unit PO DAILY 05/15/24 10/10/24 Unknown History mcg (5,000 unit) capsule testosterone 3 pump topical DAILY 05/15/24 10/10/24 Unknown History Allergies Allergy/AdvReac Type Severity Reaction Status Date / Time No Known Allergies Allergy Verified 10/10/24 15:50 Review of Systems Review of Systems: CONSTITUTIONAL: Denies malaise, chills, or fever. EYES: Denies visual changes, redness, or discharge. ENT: Denies rhinorrhea, congestion, sinus pain, and sore throat. Reports ear pain CARDIOVASCULAR: Denies chest pain, palpitations, or edema. RESPIRATORY: Denies cough or dyspnea. GASTROINTESTINAL: Denies abdominal pain, nausea, vomiting, diarrhea SKIN: reports redness to left lower leg MUSCULOSKELETAL: Denies myalgia. NEUROLOGIC: Denies headache. All systems reviewed & are unremarkable except as noted in HPI and below PMFSH Past Medical History Medical History Colon cancer screening History of left heart catheterization Anemia TABATHA (obstructive sleep apnea) Asthma Atrial fibrillation Dyslipidemia Hypertension CAD (coronary artery disease), autologous vein bypass graft Surgical History Surgical History History of cataract extraction History of coronary artery bypass graft History of appendectomy Family History Family History Father Family history of Alzheimer's disease Mother Family history of congestive heart failure, Onset Age: 79 Cerebrovascular accident Sibling Patient's sister is Social History Social History Smoking packs per day: 1 Smoking cigarettes per day: 20.0 Years smoked: 5 Smoking pack-years: 5.00 Smoking status: Former smoker Tobacco type: cigarettes Second hand tobacco smoke exposure: Yes Smoking end date: 06/06/89 Alcohol intake: current Alcohol use details: socially Substance use: current Substance use type: marijuana Other substance usage details: EDIBLES OCC. 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 There is no relevant family history pertinent to the presenting complaint Exam Narrative: GENERAL: Well-appearing. EYES: PERRLA, conjunctivae clear ENT: Nares clear. Mucous membranes moist. Right outer ear with mild swelling and erythema; tender to touch, tragal tenderness. Swelling noted to canal unable to advance otoscope. Unable to visualize Right TM. Oropharynx not erythematous without lesions. no drooling, no hoarseness, no trismus, uvula midline. NECK: Supple. No lymphadenopathy CHEST: Clear to auscultation, breath sounds equal. HEART: Regular rate and rhythm. No murmur heard. SKIN: Warm, dry Left chun with mild erythema. LLE swelling 1+. PPP. CMS intact. No significant tenderness with palpation. NEURO: Alert and oriented x3. PSYCH: Normal mood and affect Course Course Emergency Course: Patient is aware of diagnosis, understands and agrees to treatment plan. An ticipatory guidance given. Patient agrees to follow-up as directed and is aware of reasons to seek care at the emergency department. Portions of this record may have been created with voice recognition software Level of Care: Express Care Visit Vital Signs Vital signs: Vital Signs Temperature 97.1 F L 10/10/24 15:55 Pulse Rate 75 10/10/24 15:55 Respiratory Rate 16 10/10/24 15:55 Blood Pressure 135/58 L 10/10/24 15:55 Pulse Oximetry 97 10/10/24 15:55 Temperature 97.1 F L 10/10/24 15:55 Pulse Rate 75 10/10/24 15:55 Respiratory Rate 16 10/10/24 15:55 Blood Pressure 135/58 L 10/10/24 15:55 Pulse Oximetry 97 10/10/24 15:55 Reviewed Medical Decision Making MDM Narrative Medical decision making narrative: has physical exam findings consistent with right otitis externa. Will treat with oral abx and drops as pt has been using drops x2 days. Advised supportive measures and signs/symptoms to go to the ER. Patient is appropriate for outpatient treatment and follow-up. Pharmacy called stating the ciprodex was not covered, alternative RX sent. Differential Diagnosis Differential Diagnosis: Coronavirus, strep pharyngitis, allergic rhinitis, upper respiratory tract infection, sinusitis, rhinosinusitis, nasopharyngitis, viral pharyngitis, otitis media, otitis externa, eustachian tube dysfunction, foreign body, cerumen impaction. Vital Signs Vital Signs: Vital Signs Temperature 97.1 F L 10/10/24 15:55 Pulse Rate 75 10/10/24 15:55 Respiratory Rate 16 10/10/24 15:55 Blood Pressure 135/58 L 10/10/24 15:55 Pulse Oximetry 97 10/10/24 15:55 Temperature 97.1 F L 10/10/24 15:55 Pulse Rate 75 10/10/24 15:55 Respiratory Rate 16 10/10/24 15:55 Blood Pressure 135/58 L 10/10/24 15:55 Pulse Oximetry 97 10/10/24 15:55 Discharge Plan Discharge Clinical Impression: Otitis externa Patient Disposition: Home Condition: Stable Instructions: Antibiotic Form, Swimmer's Ear (ED) Additional Instructions: Swimmer's ear is an infection in the outer ear canal, which runs from your eardrum to the outside of your head. It's often caused by water that remains in your ear, creating a moist environment that encourages the growth of bacteria. Take antibiotic drops as directed, along with the medication by mouth Ear wick is placed to help instill the drop Tylenol and ibuprofen every 8 hours as needed to reduce fever, pain Avoid water or anything into the ear for one week Follow up with your personal physician for further evaluation and treatment within 3-5days. If your symptoms persist, change or worsen significantly, go to the emergency department for further evaluation. Patient Language: Occitan Prescriptions: New levofloxacin 750 mg tablet 750 mg PO DAILY Qty: 7 0RF [id number] 3.5-10,000-1 mg/mL-unit/mL-% drops,suspension 4 drp RIGHT EAR TID 10 Days Qty: 10 0RF No Action testosterone 20.25 mg/1.25 gram (1.62 %) gel in metered-dose pump 3 pump topical DAILY albuterol sulfate [Ventolin HFA] 90 mcg/actuation HFA aerosol inhaler 1 - 2 inh inhalation Q4-6H PRN (Reason: shortness of breath or wheezing) Qty: 8.5 2RF budesonide-formoterol [Symbicort] 160-4.5 mcg/actuation HFA aerosol inhaler See Rx Instructions .ROUTE .COMPLEX Qty: 11 5RF Dose Instruction: INHALE 2 PUFFS BY MOUTH EVERY 12 HOURS. RINSE AND SPIT Rx Instructions: INHALE 2 PUFFS BY MOUTH EVERY 12 HOURS. RINSE AND SPIT omega-3 fatty acids [Fish Oil Concentrate] 1,000 mg capsule 1,000 mg PO BID cholecalciferol (vitamin D3) 125 mcg (5,000 unit) capsule 2,000 unit PO DAILY aspirin 81 mg tablet,delayed release (DR/EC) 81 mg PO DAILY fluticasone propionate [Flonase Allergy Relief] 50 mcg/actuation spray,suspension 2 spray intranasal DAILY Qty: 16 0RF Rx Instructions: administer into each nostril fluoxetine [Prozac] 40 mg capsule 40 mg PO DAILY Qty: 90 3RF albuterol sulfate [Ventolin HFA] 90 mcg/actuation HFA aerosol inhaler 2 puff inhalation Q4-6H PRN (Reason: shortness of breath or wheezing) Qty: 8 5RF metoprolol tartrate 50 mg tablet See Rx Instructions .ROUTE .COMPLEX Qty: 180 2RF Dose Instruction: TAKE 1 TABLET BY MOUTH EVERY 12 HOURS Rx Instructions: TAKE 1 TABLET BY MOUTH EVERY 12 HOURS Eliquis 5 mg tablet See Rx Instructions .ROUTE .COMPLEX Qty: 180 2RF Dose Instruction: Take 1 tablet by mouth twice daily Rx Instructions: Take 1 tablet by mouth twice daily metformin 500 mg tablet 500 mg PO DAILY Qty: 90 3RF chlorthalidone 25 mg tablet 25 mg PO DAILY Qty: 90 2RF isosorbide dinitrate 20 mg tablet 20 mg PO BID Qty: 60 5RF fenofibrate 160 mg tablet 160 mg PO DAILY Qty: 90 2RF montelukast 10 mg tablet See Rx Instructions .ROUTE .COMPLEX Qty: 90 2RF Dose Instruction: Take 1 tablet by mouth once daily Rx Instructions: Take 1 tablet by mouth once daily famotidine 20 mg tablet See Rx Instructions .ROUTE .COMPLEX Qty: 180 2RF Dose Instruction: TAKE 1 TABLET BY MOUTH TWICE DAILY NEEDED FOR ACID REFLUX Rx Instructions: TAKE 1 TABLET BY MOUTH TWICE DAILY NEEDED FOR ACID REFLUX rosuvastatin 10 mg tablet 10 mg PO DAILY Qty: 90 2RF Follow-up/Referrals: Eliel Quigley DO [Primary Care Provider] - Time of Disposition: 16:57
== END 2024-10-10 17:05 | disposition home or self-care (01) ==
PROVIDERS: PCP Internal Medicine
DX: H60.91 Unspecified otitis externa, right ear (principal); Z87.891 Personal history of nicotine dependence; I48.91 Unspecified atrial fibrillation; I10 Essential (primary) hypertension; I25.10 Atherosclerotic heart disease of native coronary artery without angina pectoris; E78.5 Hyperlipidemia, unspecified; J45.909 Unspecified asthma, uncomplicated; Z95.1 Presence of aortocoronary bypass graft; Z79.82 Long term (current) use of aspirin
CPT/HCPCS: 99213; G0463

== ENCOUNTER 2024-12-01 12:29 | Emergency (ER) | payer MEDICARE, SELFPAY ==
[2024-12-01 12:44] VITALS: BP 125/87; PULSE 87; RESP 16; TEMP 36.8; O2SAT 98
[2024-12-01] MEDS: FLUORESCEIN SOD 1 MG/STRIP LEFT EYE (12:52)
[2024-12-01] MEDS: DACRIOSE EYE IRRIGATION 118 ML BOTTLE LEFT EYE (12:52)
[2024-12-01] MEDS: TETRACAINE HCL 0.5% OPHTH SOLN 4 ML BTL LEFT EYE (12:53)
--- NOTE | 2024-12-01 16:15 | ED_ITS ---
HPI - Skin/Abscess/Foreign Bdy General Chief complaint: Skin/Abscess/Foreign Body Stated complaint: FACIAL REDNESS/SWELLING Time Seen by Provider: 12/01/24 13:00 Source: patient and RN notes reviewed Mode of arrival: ambulatory Limitations: no limitations History of Present Illness HPI narrative: 74-year-old male presents Express Care complaining of pain, redness, swelling around his left eye and face for approximately 2 days. Patient states he feels like it is getting worse. Patient denies any fevers, body aches, chills, nausea, vomiting, pain with moving of his eye, eye pain, vision changes, blurry vision, or any other symptoms. Patient reports the redness and swelling is on his forehead her, around his left eye, and traveling to his left cheek. Patient states he is a diabetic but states he is well controlled. Patient's last A1c was 5.8%. Patient denies any trauma or injury to his face. Related Data Home Medications ?Medication ?Instructions ?Recorded ?Confirmed ?Last Taken ?Type omega-3 fatty acids 1,000 mg 1,000 mg PO BID 07/29/21 11/27/24 03/07/22 20:00 History capsule (Fish Oil Concentrate) aspirin 81 mg tablet,delayed 81 mg PO DAILY 02/26/22 11/27/24 03/07/22 07:30 History release cholecalciferol (vitamin D3) 125 2,000 unit PO DAILY 05/15/24 11/27/24 Unknown History mcg (5,000 unit) capsule testosterone 12/01/24 Unknown History Allergies Allergy/AdvReac Type Severity Reaction Status Date / Time No Known Allergies Allergy Verified 12/01/24 12:41 Review of Systems Review of Systems: CONSTITUTIONAL: Denies fever, chills, or sweats. EYES: Denies visual changes, redness, or discharge. ENT: Denies rhinorrhea, congestion, sore throat, or otalgia. CARDIOVASCULAR: Denies chest pain, palpitations, or edema. RESPIRATORY: Denies cough or dyspnea. GASTROINTESTINAL: Denies abdominal pain, nausea, vomiting, or diarrhea. GENITOURINARY: Denies dysuria or hematuria. SKIN: Denies rash or itching. Positive for redness and swelling. MUSCULOSKELETAL: Denies back pain, joint pain, or myalgia. NEUROLOGIC: Denies headache, numbness, or weakness. PSYCHIATRIC: Denies anxiety or depression. All other systems reviewed are negative, except as documented in HPI. [facility] Past Medical History Medical History Colon cancer screening History of left heart catheterization Anemia TABATHA (obstructive sleep apnea) Asthma Atrial fibrillation Dyslipidemia Hypertension CAD (coronary artery disease), autologous vein bypass graft Surgical History Surgical History History of cataract extraction History of coronary artery bypass graft History of appendectomy Family History Family History Father Family history of Alzheimer's disease Mother Family history of congestive heart failure, Onset Age: 79 Cerebrovascular accident Sibling Patient's sister is Social History Social History Smoking packs per day: 1 Smoking cigarettes per day: 20.0 Years smoked: 5 Smoking pack-years: 5.00 Smoking status: Former smoker Tobacco type: cigarettes Second hand tobacco smoke exposure: Yes Smoking end date: 06/06/89 Alcohol intake: current Alcohol use details: socially Substance use: current Substance use type: marijuana Other substance usage details: EDIBLES OCC. 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 There is no relevant family history pertinent to the patient complaint. Exam Narrative: GENERAL: This is a well-nourished, well-developed adult, in no apparent distress. They are non ill-appearing, nontoxic appearing. HEAD: normocephalic, atraumatic. EYES: Sclera clear/white. Conjunctiva normal. Vision is grossly intact. Extraocular movements intact. Extraocular movements are nontender. Pupils PERRLA. Wood's lamp exam of left eye with fluorescein stain: Left eye unremarkable. No dendritic lesions, no herpes lesions, no corneal abrasion. Left upper and lower eyelid is erythematous. Right upper and lower eyelids normal. Eversion of left upper and lower eyelid shows no evidence of retained foreign body. EARS: External ears normal, auditory canals clear and without drainage, TMs normal without perforation. Hearing grossly intact. NOSE: External nose normal with no obvious nasal discharge, nasal turbinates without redness, no rhinorrhea. THROAT: Mucous membranes moist, posterior pharynx clear, without erythema or swelling. Uvula midline. NECK: Neck supple, non-tender without lymphadenopathy, masses or thyromegaly. CARDIOVASCULAR: Regular rate and rhythm without murmurs, gallops, or rubs. RESPIRATORY: Clear to auscultation. Breath sounds equal bilaterally. No wheezes, rales, or rhonchi. GASTROINTESTINAL: Abdomen soft, non-tender, nondistended. Bowel sounds are active. No hepato-splenomegaly, or palpable masses. No guarding. SKIN: Area of erythema and swelling to patient's forehead which extending around patient's left orbit, nasal bridge, and to patient's left maxillary region. Is tender to palpate in warm to touch. No vesicular or papular lesions . Rash cross is the midline of the face. No area of fluctuance, no induration, no exudate. NEURO: awake, alert, and oriented to person, place and time. There were no obvious focal neurologic abnormalities. EXTREMITIES: No joint tenderness, effusion, or edema noted. Course Course Emergency Course: Portions of this record may have been created with voice recognition software Level of Care: Express Care Visit Vital Signs Vital signs: Vital Signs Temperature 98.2 F 12/01/24 12:44 Pulse Rate 87 12/01/24 12:44 Respiratory Rate 16 12/01/24 12:44 Blood Pressure 125/87 12/01/24 12:44 Pulse Oximetry 98 12/01/24 12:44 Temperature 98.2 F 12/01/24 12:44 Pulse Rate 87 12/01/24 12:44 Respiratory Rate 16 12/01/24 12:44 Blood Pressure 125/87 12/01/24 12:44 Pulse Oximetry 98 12/01/24 12:44 Reviewed MDM - Skin/Abscess/Foreign Bdy MDM Narrative Medical decision making narrative: Likely patient has a facial cellulitis/periorbital cellulitis. Evidence of orbital involvement currently, patient denies any eye pain, pain with eye movement. No herpetic lesions on patient's wood lamp exam of left eye. Low suspicion for herpes zoster since the crosses the midline of the patient's face. Will treat with Augmentin and Bactrim. Strict ER return precautions discussed with patient. Discussed physical exam findings. Advised supportive measures and signs/symptoms to go to the ER. Pt is appropriate for outpt treatment and f/u. Differential Diagnosis Differential diagnosis: Likely herpes zoster, cellulitis, eczema and contact dermatitis Critical Care Time Critical Care Time Critical Care Time: No Discharge Plan Discharge Clinical Impression: Periorbital cellulitis of left eye Patient Disposition: Home Condition: Stable Instructions: Antibiotic Form, Periorbital Cellulitis (ED) Additional Instructions: Take antibiotic until it's gone. Finish the course even if you start to feel better. Wash the face daily with mild soap and water. Please schedule a follow up visit with your personal physician for further evaluation and treatment within 2-3days. If your symptoms worsen, he developed pain in your eye, pain with eye movement, vision changes, blurry vision, fevers, worsening redness and swelling, pain the rash has turns to a blistering or papular rash, or any other concerns please go to the ER immediately. Patient Language: Estonian Prescriptions: New amoxicillin-pot clavulanate 875-125 mg tablet 1 tablet PO Q12H 7 Days Qty: 14 0RF sulfamethoxazole-trimethoprim [Bactrim DS] 800-160 mg tablet 1 tablet PO Q12H 7 Days Qty: 14 0RF No Action testosterone 20.25 mg/1.25 gram (1.62 %) gel in metered-dose pump albuterol sulfate [Ventolin HFA] 90 mcg/actuation HFA aerosol inhaler 1 - 2 inh inhalation Q4-6H PRN (Reason: shortness of breath or wheezing) Qty: 8.5 2RF budesonide-formoterol [Symbicort] 160-4.5 mcg/actuation HFA aerosol inhaler See Rx Instructions .ROUTE .COMPLEX Qty: 11 5RF Dose Instruction: INHALE 2 PUFFS BY MOUTH EVERY 12 HOURS. RINSE AND SPIT Rx Instructions: INHALE 2 PUFFS BY MOUTH EVERY 12 HOURS. RINSE AND SPIT omega-3 fatty acids [Fish Oil Concentrate] 1,000 mg capsule 1,000 mg PO BID cholecalciferol (vitamin D3) 125 mcg (5,000 unit) capsule 2,000 unit PO DAILY aspirin 81 mg tablet,delayed release (DR/EC) 81 mg PO DAILY fluticasone propionate [Flonase Allergy Relief] 50 mcg/actuation spray,suspension 2 spray intranasal DAILY Qty: 16 0RF Rx Instructions: administer into each nostril fluoxetine [Prozac] 40 mg capsule 40 mg PO DAILY Qty: 90 3RF albuterol sulfate [Ventolin HFA] 90 mcg/actuation HFA aerosol inhaler 2 puff inhalation Q4-6H PRN (Reason: shortness of breath or wheezing) Qty: 8 5RF metoprolol tartrate 50 mg tablet See Rx Instructions .ROUTE .COMPLEX Qty: 180 2RF Dose Instruction: TAKE 1 TABLET BY MOUTH EVERY 12 HOURS Rx Instructions: TAKE 1 TABLET BY MOUTH EVERY 12 HOURS Eliquis 5 mg tablet See Rx Instructions .ROUTE .COMPLEX Qty: 180 2RF Dose Instruction: Take 1 tablet by mouth twice daily Rx Instructions: Take 1 tablet by mouth twice daily metformin 500 mg tablet 500 mg PO DAILY Qty: 90 3RF chlorthalidone 25 mg tablet 25 mg PO DAILY Qty: 90 2RF isosorbide dinitrate 20 mg tablet 20 mg PO BID Qty: 60 5RF fenofibrate 160 mg tablet 160 mg PO DAILY Qty: 90 2RF montelukast 10 mg tablet See Rx Instructions .ROUTE .COMPLEX Qty: 90 2RF Dose Instruction: Take 1 tablet by mouth once daily Rx Instructions: Take 1 tablet by mouth once daily famotidine 20 mg tablet See Rx Instructions .ROUTE .COMPLEX Qty: 180 2RF Dose Instruction: TAKE 1 TABLET BY MOUTH TWICE DAILY NEEDED FOR ACID REFLUX Rx Instructions: TAKE 1 TABLET BY MOUTH TWICE DAILY NEEDED FOR ACID REFLUX rosuvastatin 10 mg tablet 10 mg PO DAILY Qty: 90 2RF pregabalin [Lyrica] 50 mg capsule 50 mg PO TID Qty: 90 2RF Follow-up/Referrals: Eliel Quigley DO [Primary Care Provider] - Time of Disposition: 13:25
== END 2024-12-01 13:39 | disposition home or self-care (01) ==
PROVIDERS: PCP Internal Medicine
DX: L03.213 Periorbital cellulitis (principal); I48.91 Unspecified atrial fibrillation; I10 Essential (primary) hypertension; I25.10 Atherosclerotic heart disease of native coronary artery without angina pectoris; Z95.1 Presence of aortocoronary bypass graft; E78.5 Hyperlipidemia, unspecified; J45.909 Unspecified asthma, uncomplicated; E11.9 Type 2 diabetes mellitus without complications; Z79.84 Long term (current) use of oral hypoglycemic drugs; Z79.82 Long term (current) use of aspirin
CPT/HCPCS: 99213; A9270; G0463

== ENCOUNTER 2025-02-04 13:11 | Emergency (ER) | payer MEDICARE, SELFPAY ==
[2025-02-04 13:20] VITALS: BP 111/79; PULSE 69; RESP 16; TEMP 35.8; O2SAT 97
--- NOTE | 2025-02-04 13:28 | ED.EAR ---
HPI - Ear Problem General Chief complaint: Ear Stated complaint: FACIAL SWELLING/REDNESS Time Seen by Provider: 02/04/25 13:25 Source: patient Mode of arrival: ambulatory Limitations: no limitations History of Present Illness HPI Narrative: 74-year-old male presents with concern for redness and tenderness to the right cheek. Reports Tuesday he began having right ear pain and started using [id number] antibiotic drops that he had had previously. Reports ear pain is resolved, he has continued to use the drops. Reports he now has facial redness and tenderness. Reports tenderness is mainly in the jaw area. Eyes dental pain. Reports yesterday he felt feverish but today does not. MD Complaint: ear pain Related Data Home Medications ?Medication ?Instructions ?Recorded ?Confirmed ?Last Taken ?Type omega-3 fatty acids 1,000 mg 1,000 mg PO BID 07/29/21 02/04/25 03/07/22 20:00 History capsule (Fish Oil Concentrate) aspirin 81 mg tablet,delayed 81 mg PO DAILY 02/26/22 02/04/25 03/07/22 07:30 History release cholecalciferol (vitamin D3) 125 2,000 unit PO DAILY 05/15/24 02/04/25 Unknown History mcg (5,000 unit) capsule [id number] 3.5 drp 02/04/25 Unknown History mg/mL-10,000 unit/mL-0.1% eye drops Allergies Allergy/AdvReac Type Severity Reaction Status Date / Time No Known Allergies Allergy Verified 12/01/24 12:41 Review of Systems Review of Systems: CONSTITUTIONAL: Denies malaise, chills. Reports yesterday he fell fever rash EYES: Denies visual changes, redness, or discharge. ENT: Denies rhinorrhea, congestion, sinus pain, and sore throat. Reports he had right ear pain yesterday. Denies current ear pain CARDIOVASCULAR: Denies chest pain, palpitations, or edema. RESPIRATORY: Denies cough or dyspnea. GASTROINTESTINAL: Denies abdominal pain, nausea, vomiting, diarrhea SKIN: Reports redness, tenderness to the right cheek and jaw MUSCULOSKELETAL: Denies myalgia. NEUROLOGIC: Denies headache. All systems reviewed & are unremarkable except as noted in HPI and below PMFSH Past Medical History Medical History Colon cancer screening History of left heart catheterization Anemia TABATHA (obstructive sleep apnea) Asthma Atrial fibrillation Dyslipidemia Hypertension CAD (coronary artery disease), autologous vein bypass graft Surgical History Surgical History History of cataract extraction History of coronary artery bypass graft History of appendectomy Family History Family History Father Family history of Alzheimer's disease Mother Family history of congestive heart failure, Onset Age: 79 Cerebrovascular accident Sibling Patient's sister is Social History Social History Smoking packs per day: 1 Smoking cigarettes per day: 20.0 Years smoked: 5 Smoking pack-years: 5.00 Smoking status: Former smoker Tobacco type: cigarettes Second hand tobacco smoke exposure: Yes Smoking end date: 06/06/89 Alcohol intake: current Alcohol use details: socially Substance use: current Substance use type: marijuana Other substance usage details: EDIBLES OCC. 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 There is no relevant family history pertinent to the presenting complaint Exam Narrative: GENERAL: Well-appearing, well-nourished, and in no acute distress. HEAD: Normocephalic EYES: PERRLA, conjunctivae clear ENT: Nares clear. Mucous membranes moist. TM pearly gill with dull light reflex bilaterally; no tragal tenderness, EAC unremarkable. Right pre pre-auricular erythema, and warmth without edema or induration noted, extending into the cheek. Oropharynx not erythematous without lesions. Tonsils not enlarged and without exudate, no drooling, no hoarseness, no trismus, uvula midline. NECK: Supple. No lymphadenopathy CHEST: Clear to auscultation, breath sounds equal. No wheezing, rhonchi, rales, or stridor. No respiratory distress, speaks in full sentences. HEART: Regular rate and rhythm. No murmur heard. SKIN: Warm, dry NEURO: Alert and oriented x3. PSYCH: Normal mood and affect Course Course Emergency Course: I advised transfer to emergency room for further evaluation of facial redness and swelling, concern patient could need IV antibiotics. Patient does not want to go to the emergency room this time. I will treat the patient to the best my ability with oral antibiotics, advised that symptoms worsen in general proven next 24 hours they should go to the emergency room. Anticipatory guidance given. Patient agrees to follow-up as directed and is aware of reasons to seek care at the emergency department. Portions of this record may have been created with voice recognition software Level of Care: [facility] Visit Vital Signs Vital signs: Vital Signs Temperature 96.5 F L 02/04/25 13:20 Pulse Rate 69 02/04/25 13:20 Respiratory Rate 16 02/04/25 13:20 Blood Pressure 111/79 02/04/25 13:20 Pulse Oximetry 97 02/04/25 13:20 Temperature 96.5 F L 02/04/25 13:20 Pulse Rate 69 02/04/25 13:20 Respiratory Rate 16 02/04/25 13:20 Blood Pressure 111/79 02/04/25 13:20 Pulse Oximetry 97 02/04/25 13:20 Reviewed Medical Decision Making MDM Narrative Medical decision making narrative: I evaluated this patient in the [facility]. History is obtained from patient who is an independent historian and physical exam was performed.? Available medical records were reviewed. ? Exam findings and relevant testing show no acute concerns or changes; patient is non-toxic appearing and is in no distress. ? Differential diagnosis and treatment plan were discussed with the patient. Patient agrees with discussion and after shared medical decision making agrees with plan of care. All questions were answered to the patient's satisfaction. Patient is appropriate for outpatient treatment and follow-up. Differential Diagnosis Differential Diagnosis: Coronavirus, strep pharyngitis, allergic rhinitis, upper respiratory tract infection, sinusitis, rhinosinusitis, nasopharyngitis, viral pharyngitis, otitis media, otitis externa, eustachian tube dysfunction, foreign body, cerumen impaction. Vital Signs Vital Signs: Vital Signs Temperature 96.5 F L 02/04/25 13:20 Pulse Rate 69 02/04/25 13:20 Respiratory Rate 16 02/04/25 13:20 Blood Pressure 111/79 02/04/25 13:20 Pulse Oximetry 97 02/04/25 13:20 Temperature 96.5 F L 02/04/25 13:20 Pulse Rate 69 02/04/25 13:20 Respiratory Rate 16 02/04/25 13:20 Blood Pressure 111/79 02/04/25 13:20 Pulse Oximetry 97 02/04/25 13:20 Discharge Plan Discharge Clinical Impression: Erysipelas of face Patient Disposition: Home Condition: Stable Instructions: Antibiotic Form, Cellulitis (ED) Additional Instructions: It is my advice that you would be best served in the emergency room for further evaluation of your infection and possible treatment with IV antibiotics. Because you do not Wanna go to the emergency room, I will treat this with oral antibiotics by you need to watch carefully over the next 12:36 p.m.. If her symptoms worsen or are not improving you need to go to the emergency room. Please follow up with your Primary Care Doctor within 48-72 hours - call for an appointment. Apply moist heat 3-4 times daily for 10-15 minutes. Take Motrin 600mg every 8 hours with food for pain. Please take Antibiotics as directed. If you experience any worsening redness, swelling, streaking (red lines), fever or chills please go to the ER Patient Language: Persian Prescriptions: New clindamycin HCl 300 mg capsule 300 mg PO Q8H 7 Days Qty: 21 0RF No Action neomycin-polymyxin B-dexameth 3.5mg/mL-10,000 unit/mL-0.1 % drops,suspension albuterol sulfate [Ventolin HFA] 90 mcg/actuation HFA aerosol inhaler 1 - 2 inh inhalation Q4-6H PRN (Reason: shortness of breath or wheezing) Qty: 8.5 2RF budesonide-formoterol [Symbicort] 160-4.5 mcg/actuation HFA aerosol inhaler See Rx Instructions .ROUTE .COMPLEX Qty: 11 5RF Dose Instruction: INHALE 2 PUFFS BY MOUTH EVERY 12 HOURS. RINSE AND SPIT Rx Instructions: INHALE 2 PUFFS BY MOUTH EVERY 12 HOURS. RINSE AND SPIT omega-3 fatty acids [Fish Oil Concentrate] 1,000 mg capsule 1,000 mg PO BID cholecalciferol (vitamin D3) 125 mcg (5,000 unit) capsule 2,000 unit PO DAILY aspirin 81 mg tablet,delayed release (DR/EC) 81 mg PO DAILY fluticasone propionate [Flonase Allergy Relief] 50 mcg/actuation spray,suspension 2 spray intranasal DAILY Qty: 16 0RF Rx Instructions: administer into each nostril fluoxetine [Prozac] 40 mg capsule 40 mg PO DAILY Qty: 90 3RF albuterol sulfate [Ventolin HFA] 90 mcg/actuation HFA aerosol inhaler 2 puff inhalation Q4-6H PRN (Reason: shortness of breath or wheezing) Qty: 8 5RF metformin 500 mg tablet 500 mg PO DAILY Qty: 90 3RF isosorbide dinitrate 20 mg tablet 20 mg PO BID Qty: 60 5RF fenofibrate 160 mg tablet 160 mg PO DAILY Qty: 90 2RF montelukast 10 mg tablet See Rx Instructions .ROUTE .COMPLEX Qty: 90 2RF Dose Instruction: Take 1 tablet by mouth once daily Rx Instructions: Take 1 tablet by mouth once daily famotidine 20 mg tablet See Rx Instructions .ROUTE .COMPLEX Qty: 180 2RF Dose Instruction: TAKE 1 TABLET BY MOUTH TWICE DAILY NEEDED FOR ACID REFLUX Rx Instructions: TAKE 1 TABLET BY MOUTH TWICE DAILY NEEDED FOR ACID REFLUX rosuvastatin 10 mg tablet 10 mg PO DAILY Qty: 90 2RF pregabalin [Lyrica] 50 mg capsule 50 mg PO TID Qty: 90 2RF metoprolol tartrate 50 mg tablet See Rx Instructions .ROUTE .COMPLEX Qty: 180 2RF Dose Instruction: TAKE 1 TABLET BY MOUTH EVERY 12 HOURS Rx Instructions: TAKE 1 TABLET BY MOUTH EVERY 12 HOURS Eliquis 5 mg tablet See Rx Instructions .ROUTE .COMPLEX Qty: 180 1RF Dose Instruction: Take 1 tablet by mouth twice daily Rx Instructions: Take 1 tablet by mouth twice daily chlorthalidone 25 mg tablet See Rx Instructions .ROUTE .COMPLEX Qty: 90 2RF Dose Instruction: Take 1 tablet by mouth once daily Rx Instructions: Take 1 tablet by mouth once daily Follow-up/Referrals: Eliel Quigley DO [Primary Care Provider, Internal Medicine] Time of Disposition: 13:34
== END 2025-02-04 14:02 | disposition home or self-care (01) ==
PROVIDERS: Emergency Provider Nurse Practitioner; PCP Internal Medicine
DX: A46 Erysipelas (principal); F12.90 Cannabis use, unspecified, uncomplicated; I48.91 Unspecified atrial fibrillation; I10 Essential (primary) hypertension; I25.10 Atherosclerotic heart disease of native coronary artery without angina pectoris; E78.5 Hyperlipidemia, unspecified; J45.909 Unspecified asthma, uncomplicated; Z87.891 Personal history of nicotine dependence; Z95.1 Presence of aortocoronary bypass graft; Z79.82 Long term (current) use of aspirin; Z79.01 Long term (current) use of anticoagulants
CPT/HCPCS: 99213; G0463

== ENCOUNTER 2025-04-27 16:07 | Emergency (ER) | payer MEDICARE, SELFPAY ==
[2025-04-27 16:41] VITALS: BP 146/77; PULSE 104; RESP 16; TEMP 37.5; O2SAT 93
--- NOTE | 2025-04-27 16:55 | ED.MALEGU ---
HPI - Male Genitourinary General Chief complaint: Urogenital-Male Stated complaint: UTI SYMPTOMS History of Present Illness HPI Narrative: CHIEF COMPLAINT: Urinary symptoms PATIENT SUMMARY: The patient presented with urinary symptoms. HISTORY OF PRESENT ILLNESS: The patient presented with a history of urinary symptoms, characterized mostly by burning while urinating and episodes of dry heaving. The patient reported a fever of 101.6?F before leaving home and had vomited slightly before transitioning to dry heaves. The patient had recently completed two courses of antibiotics, taken as needed, but did not know the names of the medications. The patient believed that the urethra was obstructed, leading to recurrent urinary tract infections (UTIs). The patient did not recall having a urine culture performed during the last visit to Dr. Up at [facility]. Despite the symptoms, the patient drove to the appointment and declined the recommendation to visit the emergency room, expressing a history of refusing such advice. The patient reported having provided a urine sample during the visit for further evaluation. I called his pharmacy and pt was put on macrobid. He does not routinely take his blood sugars at home either. DM controlled hgb a1c 4 months ago 5.8. REVIEW OF SYSTEMS: Genitourinary: Positive for burning during urination. Negative for hematuria. Constitutional: Positive for fever and chills. Negative for weight loss. Gastrointestinal: Positive for vomiting and dry heaves. Negative for diarrhea. PAST MEDICAL HISTORY: Recurrent urinary tract infections. PAST SURGICAL HISTORY: Not available. MEDICATIONS: Completed two courses of unspecified antibiotics. ALLERGIES: Not available. FAMILY HISTORY: Not available. SOCIAL HISTORY: - Refused recommendation to visit the emergency room. - Drove self to the appointment. VITALS AND PHYSICAL EXAM: Not available. DIAGNOSTIC STUDIES: Urine analysis was performed during the visit, results pending. ASSESSMENT: 1. Recurrent Urinary Tract Infections: The patient's symptoms of burning urination, fever, and vomiting are consistent with a UTI. The recent completion of antibiotics without resolution of symptoms raises concerns about antibiotic resistance or inappropriate antibiotic selection. 2. Pyelonephritis: Given the patient's fever, chills, and vomiting, there is a concern for an upper urinary tract infection, such as pyelonephritis, especially considering the anatomical obstruction in the urethra. 3. Sepsis: The patient's symptoms and history of recurrent infections suggest a potential for progression to systemic infection if untreated. This is particularly concerning given the patient's refusal to seek emergency care. PLAN: Treatment: - I would like patient to go to the ER but he absolutely refuses. - prescribing antibiotics pending urine analysis results. - Advised patient regarding the potential need for IV antibiotics if condition worsens. Tests: - Reviewed urine analysis to guide further treatment. Patient Education: - Informed the patient about the risks of untreated UTIs, including progression to sepsis and pyelonephritis. - Discussed the importance of completing the full course of prescribed antibiotics and seeking emergency care if symptoms worsen. Follow-Up: - Planned to follow up with the patient after urine analysis results are available. Medical Decision Making: The patient's history of recurrent urinary tract infections, coupled with the current symptoms of fever, burning urination, and vomiting, warranted a thorough evaluation. A urine analysis was performed to identify potential infection and guide antibiotic therapy. Differential diagnoses included recurrent UTI, pyelonephritis, and sepsis, based on the patient's symptoms and history. The plan of care involved considering further antibiotic treatment based on urine culture results and educating the patient about the potential risks of untreated infections. The patient was advised to seek emergency care if symptoms worsen, although the patient expressed reluctance to do so. Related Data Home Medications ?Medication ?Instructions ?Recorded ?Confirmed ?Last Taken ?Type omega-3 fatty acids 1,000 mg 1,000 mg PO BID 07/29/21 02/04/25 03/07/22 20:00 History capsule (Fish Oil Concentrate) aspirin 81 mg tablet,delayed 81 mg PO DAILY 02/26/22 02/04/25 03/07/22 07:30 History release cholecalciferol (vitamin D3) 125 2,000 unit PO DAILY 05/15/24 02/04/25 Unknown History mcg (5,000 unit) capsule [id number] 3.5 drp 02/04/25 Unknown History mg/mL-10,000 unit/mL-0.1% eye drops Allergies Allergy/AdvReac Type Severity Reaction Status Date / Time No Known Allergies Allergy Verified 04/27/25 16:40 Review of Systems Review of Systems: All systems reviewed & are unremarkable except as noted in HPI and below Eyes: Eyes: Reports as per HPI ENT: Reports as per HPI Cardiovascular: Cardiovascular: Reports as per HPI Respiratory: Respiratory: Reports as per HPI Genitourinary: Genitourinary: Reports as per HPI Musculoskeletal: Musculoskeletal: Reports as per HPI Integumentary/Breasts: Skin/Breast: Reports as per HPI Neurologic: Reports as per HPI Psychiatric: Psychiatric: Reports as per HPI Endocrine: Endocrine: Reports as per HPI Hematologic/Lymphatic: Hematologic/Lymphatic: Reports as per HPI Allergic/Immunologic: Allergic/Immunologic: Reports as per HPI [facility] Past Medical History Medical History Colon cancer screening History of left heart catheterization Anemia TABATHA (obstructive sleep apnea) Asthma Atrial fibrillation Dyslipidemia Hypertension CAD (coronary artery disease), autologous vein bypass graft Surgical History Surgical History History of cataract extraction History of coronary artery bypass graft History of appendectomy Family History Family History Father Family history of Alzheimer's disease Mother Family history of congestive heart failure, Onset Age: 79 Cerebrovascular accident Sibling Patient's sister is Social History Social History Smoking packs per day: 1 Smoking cigarettes per day: 20.0 Years smoked: 5 Smoking pack-years: 5.00 Smoking status: Former smoker Tobacco type: cigarettes Second hand tobacco smoke exposure: Yes Smoking end date: 06/06/89 Alcohol intake: current Alcohol use details: socially Substance use: current Substance use type: marijuana Other substance usage details: EDIBLES OCC. 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 Gender identity (if verbalized by the patient): Male Spiritual care concerns: No Exam Const: General: cooperative, diaphoretic and ill appearing Orientation/consciousness: patient oriented x3 HENMT: Head: normal to inspection Eyes: General: appearance normal, both eyes and all related structures Resp: Effort & Inspection: normal respiratory effort and able to speak in complete sentences Auscultation: clear to auscultation bilaterally Cardio: Rate: regular rate Rhythm: regular rhythm Heart sounds: S1 normal heart sound present and S2 normal heart sound present : General: Yes no CVA tenderness Skin: General skin exam: normal color Neuro: General: patient oriented x3 Cognition (Neuro): normal cognition Speech: normal speech Psych: Mental Status: mental status grossly normal Course Course Level of Care: Express Care Visit Vital Signs Vital signs: Vital Signs Temperature 99.5 F 04/27/25 16:41 Pulse Rate 104 H 04/27/25 16:41 Respiratory Rate 16 04/27/25 16:41 Blood Pressure 146/77 H 04/27/25 16:41 Pulse Oximetry 93 04/27/25 16:41 Oxygen Delivery Room Air 04/27/25 16:41 Temperature 99.5 F 04/27/25 16:41 Pulse Rate 104 H 04/27/25 16:41 Respiratory Rate 16 04/27/25 16:41 Blood Pressure 146/77 H 04/27/25 16:41 Pulse Oximetry 93 04/27/25 16:41 Oxygen Delivery Room Air 04/27/25 16:41 MDM - Male Genitourinary MDM Narrative Medical decision making narrative: Medical Decision Making: The patient's history of recurrent urinary tract infections, coupled with the current symptoms of fever, burning urination, and vomiting, warranted a thorough evaluation. A urine analysis was performed to identify potential infection and guide antibiotic therapy. Differential diagnoses included recurrent UTI, pyelonephritis, and sepsis, based on the patient's symptoms and history. The plan of care involved considering further antibiotic treatment based on urine culture results and educating the patient about the potential risks of untreated infections. The patient was advised to seek emergency care if symptoms worsen, although the patient expressed reluctance to do so. Differential Diagnosis Differential diagnosis: Likely urinary tract infection, prostatitis, acute retention of urine and other (pyelonephritis, sepsis) Discharge Plan Discharge Clinical Impression: Urinary tract infection Patient Disposition: Left Against Medical Advice Condition: Guarded Prognosis Instructions: Urinary Tract Infection in Men (ED) Additional Instructions: With your symptoms and that you just finished antibiotics I do suggest you go to the ER for further evaluation. You have refused this today so I am considering you leaving against medical advice. You were previously on macrobid. I will order a shot of ceftriaxone and some zofran here for nausea. Push fluids at home monitor your blood sugars to make sure they do not go too high or too low To the ER with any emergent concerns. Start the levoquin tomorrow. Patient Language: Korean Prescriptions: New levofloxacin 500 mg tablet 500 mg PO DAILY Qty: 7 0RF ondansetron 4 mg tablet,disintegrating 4 mg PO Q8H PRN (Reason: nausea and vomiting) Qty: 7 0RF No Action neomycin-polymyxin B-dexameth 3.5mg/mL-10,000 unit/mL-0.1 % drops,suspension clindamycin HCl 300 mg capsule 300 mg PO Q8H 7 Days Qty: 21 0RF albuterol sulfate [Ventolin HFA] 90 mcg/actuation HFA aerosol inhaler 1 - 2 inh inhalation Q4-6H PRN (Reason: shortness of breath or wheezing) Qty: 8.5 2RF budesonide-formoterol [Symbicort] 160-4.5 mcg/actuation HFA aerosol inhaler See Rx Instructions .ROUTE .COMPLEX Qty: 11 5RF Dose Instruction: INHALE 2 PUFFS BY MOUTH EVERY 12 HOURS. RINSE AND SPIT Rx Instructions: INHALE 2 PUFFS BY MOUTH EVERY 12 HOURS. RINSE AND SPIT omega-3 fatty acids [Fish Oil Concentrate] 1,000 mg capsule 1,000 mg PO BID cholecalciferol (vitamin D3) 125 mcg (5,000 unit) capsule 2,000 unit PO DAILY aspirin 81 mg tablet,delayed release (DR/EC) 81 mg PO DAILY fluticasone propionate [Flonase Allergy Relief] 50 mcg/actuation spray,suspension 2 spray intranasal DAILY Qty: 16 0RF Rx Instructions: administer into each nostril fluoxetine [Prozac] 40 mg capsule 40 mg PO DAILY Qty: 90 3RF albuterol sulfate [Ventolin HFA] 90 mcg/actuation HFA aerosol inhaler 2 puff inhalation Q4-6H PRN (Reason: shortness of breath or wheezing) Qty: 8 5RF metoprolol tartrate 50 mg tablet See Rx Instructions .ROUTE .COMPLEX Qty: 180 2RF Dose Instruction: TAKE 1 TABLET BY MOUTH EVERY 12 HOURS Rx Instructions: TAKE 1 TABLET BY MOUTH EVERY 12 HOURS Eliquis 5 mg tablet See Rx Instructions .ROUTE .COMPLEX Qty: 180 1RF Dose Instruction: Take 1 tablet by mouth twice daily Rx Instructions: Take 1 tablet by mouth twice daily chlorthalidone 25 mg tablet See Rx Instructions .ROUTE .COMPLEX Qty: 90 2RF Dose Instruction: Take 1 tablet by mouth once daily Rx Instructions: Take 1 tablet by mouth once daily fenofibrate 160 mg tablet See Rx Instructions .ROUTE .COMPLEX Qty: 90 0RF Dose Instruction: Take 1 tablet by mouth once daily Rx Instructions: Take 1 tablet by mouth once daily metformin 500 mg tablet See Rx Instructions .ROUTE .COMPLEX Qty: 90 0RF Dose Instruction: Take 1 tablet by mouth once daily Rx Instructions: Take 1 tablet by mouth once daily isosorbide dinitrate 20 mg tablet See Rx Instructions .ROUTE .COMPLEX Qty: 60 5RF Dose Instruction: Take 1 tablet by mouth twice daily Rx Instructions: Take 1 tablet by mouth twice daily montelukast 10 mg tablet See Rx Instructions .ROUTE .COMPLEX Qty: 90 2RF Dose Instruction: Take 1 tablet by mouth once daily Rx Instructions: Take 1 tablet by mouth once daily famotidine 20 mg tablet See Rx Instructions .ROUTE .COMPLEX Qty: 180 2RF Dose Instruction: TAKE 1 TABLET BY MOUTH TWICE DAILY NEEDED FOR ACID REFLUX Rx Instructions: TAKE 1 TABLET BY MOUTH TWICE DAILY NEEDED FOR ACID REFLUX rosuvastatin 10 mg tablet 10 mg PO DAILY Qty: 90 2RF pregabalin [Lyrica] 50 mg capsule 50 mg PO TID Qty: 90 2RF Follow-up/Referrals: Eliel Quigley DO [Primary Care Provider, Internal Medicine] - 3 Days Time of Disposition: 17:15
[2025-04-27] MEDS: ONDANSETRON HCL ODT 4 MG TABLET PO (17:22)
[2025-04-27] MEDS: cefTRIAXone 1 GM VIAL IM (17:22)
[2025-04-29 11:50] LABS: EDUAAPPEAR Cloudy; EDUABILI Negative (Negative); EDUABLOOD Trace (Negative); EDUACOLOR1 Yellow; EDUAGLUCOSE Negative (Negative); EDUAKETONE Negative (Negative); EDUALEUKO 1+ (Negative); EDUANITRATE Negative (Negative); EDUAPH 7.0; EDUAPROTEIN 2+ (Negative); EDUASPGRAVITY 1.020; EDUAUROBILI 2.0
== END 2025-04-27 17:59 | disposition left against medical advice (07) ==
PROVIDERS: Emergency Provider Nurse Practitioner Family; PCP Internal Medicine
DX: N39.0 Urinary tract infection, site not specified (principal); F12.90 Cannabis use, unspecified, uncomplicated; I25.10 Atherosclerotic heart disease of native coronary artery without angina pectoris; I10 Essential (primary) hypertension; E78.5 Hyperlipidemia, unspecified; I48.91 Unspecified atrial fibrillation; J45.909 Unspecified asthma, uncomplicated; Z95.1 Presence of aortocoronary bypass graft; E11.9 Type 2 diabetes mellitus without complications; Z79.84 Long term (current) use of oral hypoglycemic drugs; Z79.01 Long term (current) use of anticoagulants; Z79.82 Long term (current) use of aspirin; Z87.891 Personal history of nicotine dependence
CPT/HCPCS: 81003; 87086; 87186; 96372; 99213; A9270; G0463; J0696; J2003